=== PATIENT | male | born 1980 | race Caucasian/White ===

== ENCOUNTER 2017-05-06 20:53 | Emergency (ER) | payer BC ==
--- NOTE | 2017-05-06 22:24 | ERPHSYRPT ---
- History of Present Illness Time Seen by Provider: 05/06/17 22:18 Source: patient, police Exam Limitations: no limitations Patient Subjective Stated Complaint: pt has been fighting with his -states it's been going on for some time -she wants some space -he works out of town and tonight he had a "nervous break down " he had and gun demi and was going "ended it all" he tearful but cooperative -his nephew is at the bedside Triage Nursing Assessment: pt is awake and alert and answering questions tearful at times Physician History: The patient is a 36-year-old male brought in by [facility] complaining of wanting to kill himself with a handgun. He no longer wants to do such an act and realizes it was foolish. He states he that he had his have been fighting for 2-3 weeks. She came home 2 or 3 weeks ago and said she needed states. He assumed the worse that she had been having an affair and they began having an argument. He admits to drinking frequently but has ceased drinking alcohol for the past week. Demi his came home and showed him divorce papers. He tried to sign them that she said there was still more work to be done on the papers and would let him sign in. He left the house briefly to feed his hogs. He came back in [facility] to each of his 3 children aged 5, 9, and 11 years, got his handgun, and drove away to one of his other properties. His followed him. She stopped him before he shot himself. [facility] now brings him in. He has a past medical history of diabetes and anxiety. He takes Xanax but has been out for day. He has been started on a new anxiolytics but he doesn 't know what it is. Timing/Duration: hour(s) (3) Severity of Symptoms-Max: severe Severity of Symptoms-Current: moderate Context related to: spouse Suicidal thoughts: specific plan Associated Symptoms: depressed Previous symptoms: no prior history Allergies/Adverse Reactions: NSAIDS (Non-Steroidal Anti-Inflamma Allergy (Intermediate, Verified 05/06/17 21: 58) Swelling of Eyelids Home Medications: Alprazolam 1 mg [Xanax 1 mg] 1 tab TID 05/06/17 [History] Metformin HCl 500 mg [Glucophage 500 MG] 1,000 mg BID 05/06/17 [History] Hx Tetanus, Diphtheria Vaccination/Date Given: No Hx Influenza Vaccination/Date Given: Yes (07/2013) Hx Pneumococcal Vaccination/Date Given: No - Past Medical History Pertinent Past Medical History: Yes Neurological History: No Pertinent History ENT History: No Pertinent History Cardiac History: No Pertinent History Respiratory History: No Pertinent History Endocrine Medical History: Diabetes Type II Musculoskeletal History: No Pertinent History GI Medical History: No Pertinent History History: No Pertinent History Psycho-Social History: Anxiety Male Reproductive Disorders: Testicular Cancer Other Medical History: testicular CA 2006 - Past Surgical History Past Surgical History: Yes Neuro Surgical History: No Pertinent History Cardiac: No Pertinent History Respiratory: No Pertinent History Gastrointestinal: No Pertinent History Genitourinary: No Pertinent History Musculoskeletal: No Pertinent History Male Surgical History: Testicular Surgery, Other - Social History Smoking Status: Unknown if ever smoked Exposure to second hand smoke: Yes Drug Use: none Patient Lives Alone: No - Review of Systems Constitutional: No Fever, No Chills Eyes: No Symptoms Ears, Nose, & Throat: No Symptoms Respiratory: No Cough, No Dyspnea Cardiac: No Chest Pain, No Edema, No Syncope Abdominal/Gastrointestinal: No Abdominal Pain, No Nausea, No Vomiting, No Diarrhea Genitourinary Symptoms: No Dysuria Musculoskeletal: No Back Pain, No Neck Pain Skin: No Symptoms Neurological: No Dizziness, No Focal Weakness, No Sensory Changes Psychological: Anxiety, Depression, Suicidal Ideations Endocrine: No Symptoms Hematologic/Lymphatic: No Symptoms Immunological/Allergic: No Symptoms All Other Systems: Reviewed and Negative - Nursing Vital Signs Nursing Vital Signs: Initial Vital Signs Temperature 98.5 F Temperature Source Oral Pulse Rate 80 Respiratory Rate 16 Blood Pressure [Right Arm] 139/85 Pain Intensity 0 - Physical Exam General Appearance: moderate distress Eyes, Ears, Nose, Throat Exam: normal ENT inspection, moist mucous membranes Neck Exam: normal inspection, non-tender, supple Respiratory Exam: normal breath sounds, lungs clear, No respiratory distress Cardiovascular Exam: regular rate/rhythm, No edema Gastrointestinal/Abdominal Exam: soft, No tenderness, No distention Extremities Exam: normal inspection, normal range of motion, No evidence of injury, No edema Current Suicidality: other (pt had suicide plan but now has no suicide intention ) Neurological Exam: alert, depressed affect (tearful) Appearance: appropriate appearance Behavior/Eye Contact/Speech: alert & cooperative, cooperative Thoughts/Hallucinations: normal thought pattern Skin Exam: normal color, warm, dry, No rash SpO2 Interpretation: normal SpO2: 98 Oxygen Delivery: Room Air Ordered Tests: Active Orders 24 hr Category Date Time Status Clean Catch Urine Specimen STAT Care 05/06/17 22:38 Active Psychiatric Evaluation STAT Care 05/06/17 22:24 Active ACETAMINOPHEN Stat Lab 05/06/17 22:40 Completed CBC W DIFF Stat Lab 05/06/17 22:40 Completed CMP Stat Lab 05/06/17 22:40 Completed ETHYL ALCOHOL Stat Lab 05/06/17 22:40 Completed SALICYLATE Stat Lab 05/06/17 22:40 Completed TSH [TSH, 3RD Generation] Stat Lab 05/06/17 22:40 Completed UA W/RFX UR CULTURE Stat Lab 05/06/17 22:40 Completed Urine Triage Profile Stat Lab 05/06/17 22:40 Completed Medication Summary Discontinued Medications Generic Name Dose Route Start Last Admin Trade Name Elodia PRN Reason Stop Dose Admin Alprazolam 0.5 mg 05/07/17 00:48 05/07/17 00:52 Xanax 0.5 Mg PO 05/07/17 00:49 0.5 mg STAT ONE Administration Alprazolam Confirm 05/07/17 00:51 Xanax 0.5 Mg Administered 05/07/17 00:52 Dose 0.5 mg .ROUTE .[facility]-MED ONE Lab/Rad Data: Laboratory Result Diagrams 05/06/17 22:40 05/06/17 22:40 Laboratory Results 05/06/17 05/06/17 05/06/17 Range/Units 22:40 22:40 22:40 WBC 6.2 (4.0-10.5) K/mm3 RBC 5.50 (4.1-5.6) M/mm3 Hgb 17.0 (12.5-18.0) gm/dl Hct 49.6 (42-50) % MCV 90.2 (78-100) fl MCH 30.9 (26-32) pg MCHC 34.3 (32-36) g/dl RDW 17.1 H (11.5-14.0) % Plt Count 149 L (150-450) K/mm3 MPV 11.2 H (6-9.5) fl Gran % 57.9 (36.0-66.0) % Lymphocytes % 28.9 (24.0-44.0) % Monocytes % 11.2 (0.0-12.0) % Eosinophils % 1.5 (0.00-5.0) % Basophils % 0.5 (0.0-0.4) % Basophils # 0.03 (0-0.4) Sodium 139 (136-145) mEq/L Potassium 3.7 (3.5-5.1) mEq/L Chloride 103 (98-107) mEq/L Carbon Dioxide 27.6 (21-32) mEq/L Anion Gap 12.5 (5-15) MEQ/L BUN 8 L (9-20) mg/dL Creatinine 1.19 (0.55-1.30) mg/dl Estimated GFR > 60 ML/MIN Glucose 161 H (70-110) MG/DL Calcium 9.8 (8.5-10.1) mg/dL Total Bilirubin 1.40 H (0.2-1.0) mg/dL AST 26 (15-37) U/L ALT 34 (12-78) U/L Alkaline Phosphatase 85 (46-116) U/L Serum Total Protein 7.4 (6.4-8.2) gm/dL Albumin 4.2 (3.4-5.0) g/dL TSH 3rd Generation 3.106 (0.358-3.740) mIU/L Ur Collection Type Urine Color (YELLOW) Urine Appearance (CLEAR) Urine pH (5-6) Ur Specific Ringling (1.005-1.025) Urine Protein (Negative) Urine Ketones (NEGATIVE) Urine Blood (0-5) Wil/ul Urine Nitrite (NEGATIVE) Urine Bilirubin (NEGATIVE) Urine Urobilinogen (0-1) mg/dL Ur Leukocyte Esterase (NEGATIVE) Urine Glucose (NEGATIVE) mg/dL Salicylates < 2.8 L (2.8-20.0) mg/dl Urine Opiates Level (NEGATIVE) Ur Methadone (NEGATIVE) Acetaminophen < 2.0 L (10-30) ug/ml Urine Barbiturates (NEGATIVE) Ur Phencyclidine (PCP) (NEGATIVE) Urine Amphetamine (NEGATIVE) U Benzodiazepine Level (NEGATIVE) Urine Cocaine (NEGATIVE) Urine Marijuana (THC) (NEGATIVE) Ethyl Alcohol < 0.010 (0.00-0.01) % Specimen Received 05/06/17 05/06/17 Range/Units 22:40 22:40 WBC (4.0-10.5) K/mm3 RBC (4.1-5.6) M/mm3 Hgb (12.5-18.0) gm/dl Hct (42-50) % MCV (78-100) fl MCH (26-32) pg MCHC (32-36) g/dl RDW (11.5-14.0) % Plt Count (150-450) K/mm3 MPV (6-9.5) fl Gran % (36.0-66.0) % Lymphocytes % (24.0-44.0) % Monocytes % (0.0-12.0) % Eosinophils % (0.00-5.0) % Basophils % (0.0-0.4) % Basophils # (0-0.4) Sodium (136-145) mEq/L Potassium (3.5-5.1) mEq/L Chloride (98-107) mEq/L Carbon Dioxide (21-32) mEq/L Anion Gap (5-15) MEQ/L BUN (9-20) mg/dL Creatinine (0.55-1.30) mg/dl Estimated GFR ML/MIN Glucose (70-110) MG/DL Calcium (8.5-10.1) mg/dL Total Bilirubin (0.2-1.0) mg/dL AST (15-37) U/L ALT (12-78) U/L Alkaline Phosphatase (46-116) U/L Serum Total Protein (6.4-8.2) gm/dL Albumin (3.4-5.0) g/dL TSH 3rd Generation (0.358-3.740) mIU/L Ur Collection Type CCMS Urine Color YELLOW (YELLOW) Urine Appearance CLEAR (CLEAR) Urine pH 5.0 (5-6) Ur Specific Ringling 1.030 (1.005-1.025) Urine Protein NEGATIVE (Negative) Urine Ketones NEGATIVE (NEGATIVE) Urine Blood NEGATIVE (0-5) Wil/ul Urine Nitrite NEGATIVE (NEGATIVE) Urine Bilirubin NEGATIVE (NEGATIVE) Urine Urobilinogen NORMAL (0-1) mg/dL Ur Leukocyte Esterase NEGATIVE (NEGATIVE) Urine Glucose NEGATIVE (NEGATIVE) mg/dL Salicylates (2.8-20.0) mg/dl Urine Opiates Level NEG. (NEGATIVE) Ur Methadone NEG. (NEGATIVE) Acetaminophen (10-30) ug/ml Urine Barbiturates NEG. (NEGATIVE) Ur Phencyclidine (PCP) NEG. (NEGATIVE) Urine Amphetamine NEG. (NEGATIVE) U Benzodiazepine Level POS. (NEGATIVE) Urine Cocaine NEG. (NEGATIVE) Urine Marijuana (THC) NEG. (NEGATIVE) Ethyl Alcohol (0.00-0.01) % Specimen Received 05-06-17 2255 - Progress Progress: improved Progress Note: 05/07/17 02:26 I spoke with Darcie Munoz at [facility] about the patient. She is discussed the patient with Suma Mccullough. He has a long discussion with the patient and they assessed that he is safe to go home as long as he stays with his father. The patient's guns and remain at home and the patient will stay with his father who has no guns in the home. The patient is to follow-up with [facility] tomorrow. Counseled pt/family regarding: lab results, diagnosis, need for follow-up - Departure Time of Disposition: 02:29 Departure Disposition: Home Clinical Impression: Depression, Suicide ideation Condition: Stable Critical Care Time: No Additional Instructions: You have depression with suicide ideation. After speaking with the professionals at the [facility], you have agreed to stay with your father at his house. He has no guns in his house. You are to follow-up later today with [facility] psychiatry.
[2017-05-06 22:50] LABS: BASOPHIL % 0.5 % (0.0-0.4); Eosinophil % 1.5 % (0.00-5.0); Granulocytes % 57.9 % (36.0-66.0); Lymphocytes % 28.9 % (24.0-44.0); Mean Cell Volume 90.2 fl (78-100); Mean Corpuscular Hemoglobin 30.9 pg (26-32); Mean Platelet Volume 11.2 fl (6-9.5); Monocytes % 11.2 % (0.0-12.0); Platelet Count 149 K/mm3 (150-450); Red Cell Distribution Width 17.1 % (11.5-14.0); White Blood Count 6.2 K/mm3 (4.0-10.5)
[2017-05-06 22:58] LABS: ADD URINE CULTURE? NO (NO); Bilirubin NEGATIVE (NEGATIVE); Blood NEGATIVE Ery/ul (0-5); COMPLETE URINE MICROSCOPIC? NO; Collection Type CCMS; Glucose NEGATIVE (NEGATIVE); Leukocyte Esterase NEGATIVE (NEGATIVE)
[2017-05-06 23:24] LABS: ACETAMINOPHEN < 2.0 ug/ml (10-30); ALBUMIN 4.2 g/dL (3.4-5.0); ALKALINE PHOSPHATASE 85 U/L (46-116); ANION GAP 12.5 MEQ/L (5-15); BLOOD UREA NITROGEN 8 mg/dL (9-20); CHLORIDE 103 mEq/L (98-107); Carbon Dioxide 27.6 mEq/L (21-32); ETHYL ALCOHOL < 0.010 % (0.00-0.01); Glucose 161 MG/DL (70-110); Potassium 3.7 mEq/L (3.5-5.1); SGOT/AST 26 U/L (15-37); SGPT/ALT 34 U/L (12-78); SODIUM 139 mEq/L (136-145); Total Protein 7.4 gm/dL (6.4-8.2)
[2017-05-06 23:59] VITALS: BP 139/85; PULSE 80
[2017-05-07] MEDS ORDERED: xanAX 0.5 MG PO ONE (00:48)
[2017-05-07] MEDS ORDERED: xanAX 0.5 MG ONE (00:51)
[2017-05-07 02:31] VITALS: O2SAT 98
== END 2017-05-07 02:42 | disposition home or self-care (01) ==
LOC: ED 20:53
DX: R45.851 Suicidal ideations (principal); F32.9 Major depressive disorder, single episode, unspecified
CPT/HCPCS: 36415; 80053; 80307; 81002; 84443; 85025; 90791; 99285; G0481; Q3014; A9270-GY

== ENCOUNTER 2019-04-22 00:26 | Emergency (ER) | payer BC ==
--- NOTE | 2019-04-22 00:47 | ERPHSYRPT ---
- History of Present Illness Time Seen by Provider: 04/22/19 00:47 Source: patient Exam Limitations: no limitations Physician History: 38 y/o iddm white male who has been out of his insulin for 3 days, presents with not feeling really well and a blood glucose level of 800 at home on his uncalibrated glucometer. no n/v/d. no pain anywhere. Timing/Duration: day(s) (3) Severity: mild Associated Symptoms: malaise, No nausea, No vomiting, No abdominal pain, No shortness of breath, No chest pain, No weakness Allergies/Adverse Reactions: NSAIDS (Non-Steroidal Anti-Inflamma Allergy (Intermediate, Verified 05/06/17 21: 58) Swelling of Eyelids Home Medications: Alprazolam 1 mg [Xanax 1 mg] 1 tab PO TID PRN 05/06/17 [History] Insulin Glargine,Hum.rec.anlog [Lantus] 32 unit SQ HS 04/22/19 [History] Hx Tetanus, Diphtheria Vaccination/Date Given: No Hx Influenza Vaccination/Date Given: Yes (07/2013) Hx Pneumococcal Vaccination/Date Given: No - Review of Systems Constitutional: Malaise Eyes: No Symptoms Ears, Nose, & Throat: No Symptoms Respiratory: No Symptoms Cardiac: No Symptoms Abdominal/Gastrointestinal: No Symptoms Genitourinary Symptoms: No Symptoms Musculoskeletal: No Symptoms Skin: No Symptoms Neurological: No Symptoms Psychological: No Symptoms Endocrine: No Symptoms Hematologic/Lymphatic: No Symptoms Immunological/Allergic: No Symptoms All Other Systems: Reviewed and Negative - Past Medical History Pertinent Past Medical History: Yes Neurological History: No Pertinent History ENT History: No Pertinent History Cardiac History: No Pertinent History Respiratory History: No Pertinent History Endocrine Medical History: No Pertinent History Musculoskeletal History: Arthritis, Fractures GI Medical History: No Pertinent History History: No Pertinent History Psycho-Social History: Anxiety Male Reproductive Disorders: Testicular Cancer Other Medical History: L clavical fx in 1998. - Past Surgical History Past Surgical History: Yes Neuro Surgical History: No Pertinent History Cardiac: No Pertinent History Respiratory: No Pertinent History Gastrointestinal: No Pertinent History Genitourinary: No Pertinent History Musculoskeletal: No Pertinent History Male Surgical History: Testicular Surgery, Other - Social History Smoking Status: Unknown if ever smoked Exposure to second hand smoke: Yes Drug Use: none Patient Lives Alone: No - Nursing Vital Signs Nursing Vital Signs: Initial Vital Signs Temperature 97.7 F 04/22/19 00:55 Pulse Rate 101 H 04/22/19 00:55 Respiratory Rate 18 04/22/19 00:55 Blood Pressure 123/83 04/22/19 00:55 O2 Sat by Pulse Oximetry 93 L 04/22/19 00:55 Pain Scale Pain Intensity 0 - Physical Exam General Appearance: no apparent distress, alert, anxiety Eye Exam: PERRL/EOMI, eyes nml inspection Ears, Nose, Throat Exam: normal ENT inspection, moist mucous membranes Neck Exam: normal inspection, non-tender, supple, full range of motion Respiratory Exam: normal breath sounds, lungs clear, airway intact, No chest tenderness, No respiratory distress Cardiovascular Exam: regular rate/rhythm, normal heart sounds, normal peripheral pulses Gastrointestinal/Abdomen Exam: soft, normal bowel sounds, No tenderness Back Exam: normal inspection, normal range of motion, No CVA tenderness, No vertebral tenderness Extremity Exam: normal inspection, normal range of motion, pelvis stable Neurologic Exam: alert, oriented x 3, cooperative, life educator II-XII nml as tested, normal mood/affect, nml cerebellar function, nml station & gait, sensation nml Skin Exam: normal color, warm, dry Lymphatic Exam: No adenopathy SpO2 Interpretation: normal O2 Delivery: Room Air Ordered Tests: Active Orders 24 hr Category Date Time Status IV Insertion STAT Care 04/22/19 00:48 Active BMP Stat Lab 04/22/19 00:55 Completed CBC W DIFF Stat Lab 04/22/19 00:55 Completed Manual Differential NC Stat Lab 04/22/19 00:55 Completed UA W/RFX UR CULTURE Stat Lab 04/22/19 02:41 Ordered Medication Summary Generic Name Dose Route Start Last Admin Trade Name Freq PRN Reason Stop Dose Admin Sodium Chloride 1,000 mls @ 999 mls/hr 04/22/19 01:56 Sodium Chloride 0.9% 1000 Ml IV 04/22/19 02:56 .Q1H1M STA Discontinued Medications Generic Name Dose Route Start Last Admin Trade Name Freq PRN Reason Stop Dose Admin Sodium Chloride 1,000 mls @ 999 mls/hr 04/22/19 00:48 04/22/19 01:06 Sodium Chloride 0.9% 1000 Ml IV 04/22/19 01:48 999 mls/hr .Q1H1M STA Administration Sodium Chloride Confirm 04/22/19 01:06 Sodium Chloride 0.9% 1000 Ml Administered 04/22/19 01:07 Dose 1,000 mls @ .ROUTE .[facility]-MED ONE Lab/Rad Data: Laboratory Result Diagrams 04/22/19 00:55 04/22/19 00:55 Laboratory Results 04/22/19 04/22/19 Range/Units 00:55 00:55 WBC 5.8 (4.0-10.5) K/mm3 RBC 4.86 (4.1-5.6) M/mm3 Hgb 15.2 (12.5-18.0) gm/dl Hct 42.8 (42-50) % MCV 88.1 (78-100) fl MCH 31.3 (26-32) pg MCHC 35.5 (32-36) g/dl RDW 13.6 (11.5-14.0) % Plt Count 184 (150-450) K/mm3 MPV 11.5 H (6-9.5) fl Sodium 134 L (137-145) mmol/L Potassium 3.9 (3.5-5.1) mmol/L Chloride 98 (98-107) mmol/L Carbon Dioxide 13 L* (22-30) mmol/L Anion Gap 27.3 H (5-15) MEQ/L BUN 15 (9-20) mg/dL Creatinine 0.99 (0.66-1.25) mg/dL Estimated GFR > 60.0 ML/MIN Glucose 336 H (74-106) mg/dL Calcium 9.6 (8.4-10.2) mg/dL - Progress Progress: re-examined Progress Note: 04/22/19 02:56 pt does not want to wait for further tx and wants to leave [facility]. risks of not completing work up d/w pt.he signed an [facility] form Counseled pt/family regarding: lab results, diagnosis, need for follow-up - Departure Departure Disposition: AMA Clinical Impression: Hyperglycemia Condition: Stable Critical Care Time: No Referrals: ROGELIO HAIDER [Primary Care Provider] - Additional Instructions: return to ED if symptoms worsen. follow up with your primary doctor for further management and refill of your medications
[2019-04-22] MEDS ORDERED: Sodium Chloride 0.9% 1000 ML 1,000 ML IV STA ×2 (00:48→01:56)
[2019-04-22 00:56] VITALS: BP 123/83
[2019-04-22] MEDS ORDERED: Sodium Chloride 0.9% 1000 ML 1,000 ML ONE (01:06)
[2019-04-22 01:09] LABS: Hematocrit 42.8 % (42-50); Hemoglobin 15.2 gm/dl (12.5-18.0); Mean Cell Volume 88.1 fl (78-100); Mean Corpuscular Hemoglobin 31.3 pg (26-32); Mean Corpuscular Hgb Concent. 35.5 g/dl (32-36); Mean Platelet Volume 11.5 fl (6-9.5); Platelet Count 184 K/mm3 (150-450); Red Blood Count 4.86 M/mm3 (4.1-5.6); Red Cell Distribution Width 13.6 % (11.5-14.0); White Blood Count 5.8 K/mm3 (4.0-10.5)
[2019-04-22 01:18] LABS: ANION GAP 27.3 MEQ/L (5-15); BLOOD UREA NITROGEN 15 mg/dL (9-20); CHLORIDE 98 mmol/L (98-107); Calcium 9.6 mg/dL (8.4-10.2); Creatinine 1 0.99 mg/dL (0.66-1.25); Glucose 336 mg/dL (74-106); Potassium 3.9 mmol/L (3.5-5.1); SODIUM 134 mmol/L (137-145)
[2019-04-22 01:23] VITALS: PULSE 95; O2SAT 98
[2019-04-22 01:31] LABS: Carbon Dioxide 13 mmol/L (22-30)
[2019-04-22 02:55] LABS: Appearance CLEAR (CLEAR); Bilirubin NEGATIVE (NEGATIVE); Blood NEGATIVE Ery/ul (0-5); Glucose >=500 mg/dL (NEGATIVE); Ketones TRACE (NEGATIVE); Leukocyte Esterase NEGATIVE (NEGATIVE); Nitrite NEGATIVE (NEGATIVE); Protein,Urine Dip NEGATIVE (Negative); Specific Gravity 1.008 (1.005-1.025); Urobilinogen NEGATIVE mg/dL (0-1)
[2019-04-22 04:26] LABS: Eosinophil 3 % (0.00-3.0); Lymphocytes 42 % (24-44); Monocyte 5 % (0.0-12.0); Neutrophils 50 % (36.-66.); Platelet Estimate NORMAL (NORMAL); Total Cells Counted 100
== END 2019-04-22 03:10 | disposition left against medical advice (07) ==
LOC: ED 00:26
DX: E10.65 Type 1 diabetes mellitus with hyperglycemia (principal)
CPT/HCPCS: 36000; 36415; 80048; 81001; 85025; 96360; 99284

== ENCOUNTER 2022-03-29 00:49 | Emergency (ER) | payer SELFPAY ==
[2022-03-29] MEDS ORDERED: BABY ASPIRIN 81 MG CHEW PO ONE (00:58)
[2022-03-29] MEDS ORDERED: Sodium Chloride 0.9% 1000 ML 1,000 ML IV STA (00:58)
[2022-03-29] MEDS ORDERED: Sodium Chloride 0.9% 1000 ML 1,000 ML ONE (01:13)
[2022-03-29] MEDS ORDERED: Nitrostat 0.4 MG Tablet SL PRN (01:17)
[2022-03-29 01:18] LABS: Absolute Neutrophil Ct (ANC) 3.65 x10^3/uL (1.4-6.9); Basophil (Absolute #) 0.09 x10^3/uL (0-0.4); Eosinophil % 2.4 % (0.00-5.0); Eosinophil (Absolute #) 0.15 x10^3/uL (0-0.5); Hematocrit 43.5 % (42-50); Hemoglobin 15.1 g/dL (12.5-18.0); Lymphocyte (Absolute #) 1.97 x10^3/uL (1.0-4.6); Lymphocytes % 31.2 % (24.0-44.0); Mean Cell Volume 83.5 fL (78-100); Mean Corpuscular Hgb Concent. 34.7 g/dL (32-36); Mean Platelet Volume 11.4 fL (7.5-11.0); Monocyte (Absolute #) 0.43 x10^3/uL (0.0-1.3); Monocytes % 6.8 % (0.0-12.0); Neutrophil % 57.7 % (36.0-66.0); Platelet Count 239 x10^3/uL (150-450); Red Blood Count 5.21 x10^6/uL (4.1-5.6); Red Cell Distribution Width 12.6 % (11.5-14.0); White Blood Count 6.3 x10^3/uL (4.0-10.5)
[2022-03-29 01:30] LABS: D-DIMER QUANTITATIVE 0.19 ng/mL (0.0-0.50); INR 0.93 (0.8-3.0); PROTIME 9.9 SECONDS (9.4-12.5)
[2022-03-29 01:38] LABS: ALBUMIN 3.9 g/dL (3.5-5.0); ALKALINE PHOSPHATASE 148 U/L (38-126); AMYLASE 69 U/L (30-110); ANION GAP 14.8 MEQ/L (5-15); BLOOD UREA NITROGEN 13 mg/dL (9-20); CHLORIDE 98 mmol/L (98-107); Calcium 9.6 mg/dL (8.4-10.2); Carbon Dioxide 23 mmol/L (22-30); Creatinine 1 1.01 mg/dL (0.66-1.25); EST GLOMERULAR FILTRATION RATE > 60.0 ML/MIN; ETHYL ALCOHOL < 10 mg/dL (0-10); Glucose 427 mg/dL (74-106); LIPASE 189 U/L (23-300); NT PRO BNP < 11.5 pg/mL (0-450); Potassium 3.6 mmol/L (3.5-5.1); SGOT/AST 20 U/L (17-59); SGPT/ALT 22 U/L (0-50); SODIUM 132 mmol/L (137-145); Total Protein 6.8 g/dL (6.3-8.2)
[2022-03-29] MEDS ORDERED: HUMULIN R IV ONE (01:49)
[2022-03-29] MEDS ORDERED: HUMULIN R ONE (01:57)
[2022-03-29] MEDS ORDERED: Lantus Insulin ONE (02:04)
--- NOTE | 2022-03-29 02:34 | ERPHSYRPT ---
- History of Present Illness Time Seen by Provider: 03/29/22 00:55 Historian: patient, police Exam Limitations: no limitations Patient Subjective Stated Complaint: Pt states a few moments prior to arrival he started having chest pain Triage Nursing Assessment: Pt ambulated back to ER in handcuffs and accompanied by law enforcement. Pt holding his left chest. Respirations normal. No diaphoresis. Physician History: Patient is a 41-year-old male who was arrested by [facility] police reportedly he had been dealing and drugs. While he was having his blood drawn in the lab he developed left-sided chest pain which she rated initially as 9 of 10 now says it is 2 of 10 there is no radiation he has had some nausea but no vomiting this pain started approximately 30 minutes prior to exam. He is an insulin-dependent diabetic and reports he takes 52 units of Lantus every night has not taken any for more than 24 hours. Timing/Duration: today Activities at Onset: other (Getting blood drawn by [place] [employer] police) Quality: pressure Location: substernal Chest Pain Radiation: no radiation Severity of Pain-Max: severe Severity of Pain-Current: mild Modifying Factors: Improves With: nothing Associated Symptoms: nausea Prior Chest Pain/Cardiac Workup: no prior cardiac workup Nitro Today/Relief: no nitro taken today Aspirin Treatment Today: no aspirin today Allergies/Adverse Reactions: NSAIDS (Non-Steroidal Anti-Inflamma Allergy (Intermediate, Verified 05/06/17 21:58) Swelling of Eyelids Home Medications: ALPRAZolam 1 MG [Xanax 1 mg] 1 tab PO TID PRN 05/06/17 [History] Insulin Glargine,Hum.rec.anlog [Lantus] 50 unit SQ HS 04/22/19 [History] Hx Tetanus, Diphtheria Vaccination/Date Given: No Hx Influenza Vaccination/Date Given: Yes (07/2013) Hx Pneumococcal Vaccination/Date Given: No Travel Risk - International Travel Have you traveled outside of the country in past 3 weeks: No - Coronavirus Screening Are you exhibiting any of the following symptoms?: No - Vaccine Status Have you recieved a Covid-19 vaccination: No - Review of Systems Constitutional: No Fever, No Chills Eyes: No Symptoms Ears, Nose, & Throat: No Symptoms Respiratory: No Cough, No Dyspnea Cardiac: Chest Pain, No Edema, No Syncope Abdominal/Gastrointestinal: Nausea, No Abdominal Pain, No Vomiting, No Diarrhea Genitourinary Symptoms: No Dysuria Musculoskeletal: No Back Pain, No Neck Pain Skin: No Rash Neurological: No Dizziness, No Focal Weakness, No Sensory Changes Psychological: No Symptoms Endocrine: No Symptoms All Other Systems: Reviewed and Negative - Past Medical History Pertinent Past Medical History: Yes Neurological History: No Pertinent History ENT History: No Pertinent History Cardiac History: No Pertinent History Respiratory History: No Pertinent History Endocrine Medical History: Diabetes Type II Musculoskeletal History: Arthritis, Fractures GI Medical History: No Pertinent History History: No Pertinent History Psycho-Social History: Anxiety Male Reproductive Disorders: Testicular Cancer Other Medical History: Hx of fractures but none involving LE. - Past Surgical History Past Surgical History: Yes Neuro Surgical History: No Pertinent History Cardiac: No Pertinent History Respiratory: No Pertinent History Gastrointestinal: No Pertinent History Genitourinary: No Pertinent History Musculoskeletal: No Pertinent History Male Surgical History: Testicular Surgery, Other - Social History Smoking Status: Never smoker Exposure to second hand smoke: Yes Drug Use: none Patient Lives Alone: No - Nursing Vital Signs Nursing Vital Signs: Initial Vital Signs Pulse Rate 112 H 03/29/22 00:50 Blood Pressure 156/99 03/29/22 00:50 O2 Sat by Pulse Oximetry 98 03/29/22 00:50 Pain Scale Pain Intensity 0 - Physical Exam General Appearance: mild distress, alert Eye Exam: PERRL/EOMI, eyes nml inspection Ears, Nose, Throat Exam: normal ENT inspection, moist mucous membranes Neck Exam: normal inspection, non-tender, supple, full range of motion Respiratory Exam: normal breath sounds, lungs clear, No respiratory distress Cardiovascular Exam: regular rate/rhythm, normal heart sounds Gastrointestinal/Abdomen Exam: soft, No tenderness, No mass Back Exam: normal inspection, No CVA tenderness, No vertebral tenderness Extremity Exam: normal inspection, normal range of motion Neurologic Exam: alert, oriented x 3, cooperative, normal mood/affect, sensation nml, No motor deficits Skin Exam: normal color, warm, dry SpO2 Interpretation: normal SpO2: 99 O2 Delivery: Room Air - Course Nursing assessment & vital signs reviewed: Yes EKG Interpreted by Me: RATE ([id number]), Sinus Tach, NORMAL AXIS, NORMAL INTERVALS, ST Elev (Consistent with early repolarization), Non-specific ST Changes, Other (Repeat EKG showed no changes) - Radiology Exams Chest X-ray Interpretation: Interpreted by me, Negative Ordered Tests: Active Orders 24 hr Category Date Time Status Clean Catch Urine Specimen STAT Care 03/29/22 00:58 Active EKG-ER Only STAT Care 03/29/22 00:58 Active IV Insertion STAT Care 03/29/22 00:58 Active CHEST 1 VIEW (PORTABLE) Stat Exams 03/29/22 00:58 Taken AMYLASE Stat Lab 03/29/22 01:00 Completed CBC W DIFF Stat Lab 03/29/22 01:00 Completed CMP Stat Lab 03/29/22 01:00 Completed D-DIMER QUANTITATIVE Stat Lab 03/29/22 01:00 Completed ETHYL ALCOHOL Stat Lab 03/29/22 01:00 Completed LIPASE Stat Lab 03/29/22 01:00 Completed Lactic Acid Stat Lab 03/29/22 00:58 Completed Lactic Acid Stat Lab 03/29/22 03:17 Received Lactic Acid Stat Lab 03/29/22 03:38 Completed MAGNESIUM Stat Lab 03/29/22 01:00 Completed NT PRO BNP Stat Lab 03/29/22 01:00 Completed POCT GLUCOSE Stat Lab 03/29/22 03:33 Completed PROTIME WITH INR Stat Lab 03/29/22 01:00 Completed TROPONIN Q3H Lab 03/29/22 01:00 Completed TROPONIN Q3H Lab 03/29/22 04:10 Completed TROPONIN Q3H Lab 03/29/22 07:00 Ordered TROPONIN Q3H Lab 03/29/22 10:00 Ordered TROPONIN Q3H Lab 03/29/22 13:00 Ordered UA W/RFX CULTURE Stat Lab 03/29/22 Ordered Urine Triage Profile Stat Lab 03/29/22 00:58 Ordered Medication Summary Generic Name Dose Route Start Last Admin Trade Name Freq PRN Reason Stop Dose Admin Insulin Glargine 20 unit 03/29/22 22:00 03/29/22 02:12 Insulin Glargine 1 Unit SQ 04/28/22 21:59 20 unit HS MILLICENT Administration Nitroglycerin 0.4 mg 03/29/22 01:17 03/29/22 01:23 Nitroglycerin 0.4 Mg Tablet Bottle SL 04/28/22 01:16 0.4 mg PRN PRN Administration CHEST PAIN Discontinued Medications Generic Name Dose Route Start Last Admin Trade Name Freq PRN Reason Stop Dose Admin Aspirin 324 mg 03/29/22 00:58 03/29/22 01:14 Aspirin 81 Mg Tab.Chew PO 03/29/22 00:59 Not Given STAT ONE Sodium Chloride 1,000 mls @ 999 mls/hr 03/29/22 00:58 03/29/22 01:14 Sodium Chloride 0.9% 1000 Ml IV 03/29/22 01:58 999 mls/hr .Q1H1M STA Administration Sodium Chloride Confirm 03/29/22 01:13 Sodium Chloride 0.9% 1000 Ml Administered 03/29/22 01:14 Dose 1,000 mls @ ud .ROUTE .STK-WinAd ONE Insulin Glargine Confirm 03/29/22 02:04 Insulin Glargine 1 Unit Administered 03/29/22 02:05 Dose 20 unit .ROUTE .STK-MED ONE Insulin Human Regular 10 unit 03/29/22 01:49 03/29/22 01:57 Insulin Regular, Human 1 Unit IV 03/29/22 01:50 10 unit STAT ONE Administration Insulin Human Regular Confirm 03/29/22 01:57 Insulin Regular, Human 1 Unit Administered 03/29/22 01:58 Dose 10 unit .ROUTE .STK-WinAd ONE Lab/Rad Data: Laboratory Result Diagrams 03/29/22 01:00 03/29/22 01:00 Laboratory Results 03/29/22 03/29/22 03/29/22 Range/Units 04:10 03:38 03:33 WBC (4.0-10.5) x10^3/uL RBC (4.1-5.6) x10^6/uL Hgb (12.5-18.0) g/dL Hct (42-50) % MCV (78-100) fL MCH (26-32) pg MCHC (32-36) g/dL RDW (11.5-14.0) % Plt Count (150-450) x10^3/uL MPV (7.5-11.0) fL Gran % (36.0-66.0) % Immature Gran % (Auto) (0.00-0.4) % Nucleat RBC Rel Count (0.00-0.1) % Eos # (Auto) (0-0.5) x10^3/uL Immature Gran # (Auto) (0.00-0.03) x10^3u/L Absolute Lymphs (auto) (1.0-4.6) x10^3/uL Absolute Monos (auto) (0.0-1.3) x10^3/uL Absolute Nucleated RBC (0.00-0.01) x10^3u/L Lymphocytes % (24.0-44.0) % Monocytes % (0.0-12.0) % Eosinophils % (0.00-5.0) % Basophils % (0.0-0.4) % Absolute Granulocytes (1.4-6.9) x10^3/uL Basophils # (0-0.4) x10^3/uL PT (9.4-12.5) SECONDS INR (0.8-3.0) D-Dimer (0.0-0.50) ng/mL Sodium (137-145) mmol/L Potassium (3.5-5.1) mmol/L Chloride (98-107) mmol/L Carbon Dioxide (22-30) mmol/L Anion Gap (5-15) MEQ/L BUN (9-20) mg/dL Creatinine (0.66-1.25) mg/dL Estimated GFR ML/MIN Glucose (74-106) mg/dL POC Glucometer 279 H (74 to 106) mg/dL Lactic Acid 1.7 (0.4-2.0) Calcium (8.4-10.2) mg/dL Magnesium (1.6-2.3) mg/dL Total Bilirubin (0.2-1.3) mg/dL AST (17-59) U/L ALT (0-50) U/L Alkaline Phosphatase (38-126) U/L Troponin I < 0.012 (0.000-0.034) ng/mL NT-Pro-B Natriuret Pep (0-450) pg/mL Serum Total Protein (6.3-8.2) g/dL Albumin (3.5-5.0) g/dL Amylase (30-110) U/L Lipase (23-300) U/L Ethyl Alcohol (0-10) mg/dL 03/29/22 03/29/22 03/29/22 Range/Units 01:00 01:00 01:00 WBC (4.0-10.5) x10^3/uL RBC (4.1-5.6) x10^6/uL Hgb (12.5-18.0) g/dL Hct (42-50) % MCV (78-100) fL MCH (26-32) pg MCHC (32-36) g/dL RDW (11.5-14.0) % Plt Count (150-450) x10^3/uL MPV (7.5-11.0) fL Gran % (36.0-66.0) % Immature Gran % (Auto) (0.00-0.4) % Nucleat RBC Rel Count (0.00-0.1) % Eos # (Auto) (0-0.5) x10^3/uL Immature Gran # (Auto) (0.00-0.03) x10^3u/L Absolute Lymphs (auto) (1.0-4.6) x10^3/uL Absolute Monos (auto) (0.0-1.3) x10^3/uL Absolute Nucleated RBC (0.00-0.01) x10^3u/L Lymphocytes % (24.0-44.0) % Monocytes % (0.0-12.0) % Eosinophils % (0.00-5.0) % Basophils % (0.0-0.4) % Absolute Granulocytes (1.4-6.9) x10^3/uL Basophils # (0-0.4) x10^3/uL PT 9.9 (9.4-12.5) SECONDS INR 0.93 (0.8-3.0) D-Dimer 0.19 (0.0-0.50) ng/mL Sodium 132 L (137-145) mmol/L Potassium 3.6 (3.5-5.1) mmol/L Chloride 98 (98-107) mmol/L Carbon Dioxide 23 (22-30) mmol/L Anion Gap 14.8 (5-15) MEQ/L BUN 13 (9-20) mg/dL Creatinine 1.01 (0.66-1.25) mg/dL Estimated GFR > 60.0 ML/MIN Glucose 427 H (74-106) mg/dL POC Glucometer (74 to 106) mg/dL Lactic Acid (0.4-2.0) Calcium 9.6 (8.4-10.2) mg/dL Magnesium 2.0 (1.6-2.3) mg/dL Total Bilirubin 0.70 (0.2-1.3) mg/dL AST 20 (17-59) U/L ALT 22 (0-50) U/L Alkaline Phosphatase 148 H (38-126) U/L Troponin I < 0.012 (0.000-0.034) ng/mL NT-Pro-B Natriuret Pep < 11.5 (0-450) pg/mL Serum Total Protein 6.8 (6.3-8.2) g/dL Albumin 3.9 (3.5-5.0) g/dL Amylase 69 (30-110) U/L Lipase 189 (23-300) U/L Ethyl Alcohol < 10 (0-10) mg/dL 03/29/22 03/29/22 Range/Units 01:00 00:58 WBC 6.3 (4.0-10.5) x10^3/uL RBC 5.21 (4.1-5.6) x10^6/uL Hgb 15.1 (12.5-18.0) g/dL Hct 43.5 (42-50) % MCV 83.5 (78-100) fL MCH 29.0 (26-32) pg MCHC 34.7 (32-36) g/dL RDW 12.6 (11.5-14.0) % Plt Count 239 (150-450) x10^3/uL MPV 11.4 H (7.5-11.0) fL Gran % 57.7 (36.0-66.0) % Immature Gran % (Auto) 0.5 H (0.00-0.4) % Nucleat RBC Rel Count 0.0 (0.00-0.1) % Eos # (Auto) 0.15 (0-0.5) x10^3/uL Immature Gran # (Auto) 0.03 (0.00-0.03) x10^3u/L Absolute Lymphs (auto) 1.97 (1.0-4.6) x10^3/uL Absolute Monos (auto) 0.43 (0.0-1.3) x10^3/uL Absolute Nucleated RBC 0.00 (0.00-0.01) x10^3u/L Lymphocytes % 31.2 (24.0-44.0) % Monocytes % 6.8 (0.0-12.0) % Eosinophils % 2.4 (0.00-5.0) % Basophils % 1.4 (0.0-0.4) % Absolute Granulocytes 3.65 (1.4-6.9) x10^3/uL Basophils # 0.09 (0-0.4) x10^3/uL PT (9.4-12.5) SECONDS INR (0.8-3.0) D-Dimer (0.0-0.50) ng/mL Sodium (137-145) mmol/L Potassium (3.5-5.1) mmol/L Chloride (98-107) mmol/L Carbon Dioxide (22-30) mmol/L Anion Gap (5-15) MEQ/L BUN (9-20) mg/dL Creatinine (0.66-1.25) mg/dL Estimated GFR ML/MIN Glucose (74-106) mg/dL POC Glucometer (74 to 106) mg/dL Lactic Acid 2.8 H (0.4-2.0) Calcium (8.4-10.2) mg/dL Magnesium (1.6-2.3) mg/dL Total Bilirubin (0.2-1.3) mg/dL AST (17-59) U/L ALT (0-50) U/L Alkaline Phosphatase (38-126) U/L Troponin I (0.000-0.034) ng/mL NT-Pro-B Natriuret Pep (0-450) pg/mL Serum Total Protein (6.3-8.2) g/dL Albumin (3.5-5.0) g/dL Amylase (30-110) U/L Lipase (23-300) U/L Ethyl Alcohol (0-10) mg/dL - Progress Progress: improved Air Movement: good Progress Note: 03/29/22 04:50 Patient was kept in the ER because of his complaints of chest pain and a 3-hour troponin was done which was negative, he was released to the [place] [employer]. 03/29/22 04:51 He did have marked improvement in his hyperglycemia at the time of discharge it had gone from greater than 400 to 270. Blood Culture(s) Obtained: No Antibiotics given: No - Departure Departure Disposition: Senior Living/Retirement Clinical Impression: Chest pain, Hyperglycemia due to type 1 diabetes mellitus Condition: Stable Critical Care Time: No Referrals: NEO GARDNER NP [Primary Care Provider] - Follow up/PCP as directed Instructions: Chest Pain (DC)
[2022-03-29 04:55] LABS: Appearance CLEAR (CLEAR); Bilirubin NEGATIVE (NEGATIVE); Glucose 500 mg/dL (NEGATIVE); Ketones NEGATIVE (NEGATIVE)
[2022-03-29 04:56] LABS: Dipstick done @ ? MAIN LAB; Nitrite NEGATIVE (NEGATIVE); Ph 5.5 (5-6); Protein,Urine Dip NEGATIVE (Negative); RBC NEGATIVE Ery/ul (0-5); Urobilinogen 0.2 mg/dL (0-1)
[2022-03-29 04:57] LABS: Urine Cultured Indicated? YES
[2022-03-29 05:08] LABS: Barbiturate,Urine NEGATIVE (NEGATIVE); Benzodiazepine,Urine NEGATIVE (NEGATIVE); Cocaine,Urine NEGATIVE (NEGATIVE); Methadone,Urine NEGATIVE (NEGATIVE); Opiate,Urine NEGATIVE (NEGATIVE); PCP,Urine NEGATIVE (NEGATIVE); THC,Urine NEGATIVE (NEGATIVE)
[2022-03-29 05:18] VITALS: BP 144/92; PULSE 101; O2SAT 99
[2022-03-29 05:35] LABS: Amphetamine,Urine POSITIVE (NEGATIVE)
--- NOTE | 2022-03-29 07:58 | XRAY ---
Indication: Chest pain. No known injury. Possible ETOH. Comparison: June 02, 2013. Portable apical lordotic chest is now underinflated crowding both lung bases. Remaining heart and upper lungs unremarkable. Bony thorax intact with old left clavicle fracture. Impression: Nonacute underinflated chest.
[2022-03-29] MEDS ORDERED: Lantus Insulin SQ SCH (22:00)
== END 2022-03-29 05:18 ==
LOC: ED 00:49
DX: R07.9 Chest pain, unspecified (principal); E10.65 Type 1 diabetes mellitus with hyperglycemia; R11.0 Nausea; Z79.4 Long term (current) use of insulin
CPT/HCPCS: 36000; 36415; 71045; 80053; 80307; 81015; 82150; 82947; 83605; 83690; 83735; 83880; 84484; 85025; 85379; 85610; 87086; 93005; 96372; 99284; J1815; A9270-GY; G0480

== ENCOUNTER 2022-10-31 14:36 | Emergency (ER) | payer SELFPAY ==
--- NOTE | 2022-10-31 14:43 | ERPHSYRPT ---
- History of Present Illness Time Seen by Provider: 10/31/22 14:42 Source: patient Exam Limitations: no limitations Physician History: This a 42-year-old white male patient has a history of diabetes, arthritis and anxiety issues. He presents to the emergency room with some substernal central nonradiating chest pressure. He has no history of coronary artery disease. Patient states that he has not had any illicit drug use. He has not drank any alcohol. He is on his way to stay [facility] because of her recent DUI. He became anxious and was having some chest pain as described above. They wanted to be evaluated. Patient is not suicidal or homicidal. Timing/Duration: today Severity of Symptoms-Max: mild (To moderate) Severity of Symptoms-Current: mild Context related to: legal problems Associated Symptoms: anxiety Previous symptoms: no prior history Allergies/Adverse Reactions: NSAIDS (Non-Steroidal Anti-Inflamma Allergy (Intermediate, Verified 05/06/17 21:58) Swelling of Eyelids aspirin Allergy (Verified 10/31/22 14:54) shellfish derived Allergy (Verified 10/31/22 14:54) Home Medications: Insulin Glargine,Hum.rec.anlog [Lantus] 52 unit SQ HS 04/22/19 [History] Hx Tetanus, Diphtheria Vaccination/Date Given: No Hx Influenza Vaccination/Date Given: Yes (07/2013) Hx Pneumococcal Vaccination/Date Given: No Travel Risk - International Travel Have you traveled outside of the country in past 3 weeks: No - Coronavirus Screening Are you exhibiting any of the following symptoms?: No Close contact with a COVID-19 positive Pt in past 14-21 Days: No - Vaccine Status Have you recieved a Covid-19 vaccination: No - Past Medical History Pertinent Past Medical History: Yes Neurological History: No Pertinent History ENT History: No Pertinent History Cardiac History: No Pertinent History Respiratory History: No Pertinent History Endocrine Medical History: Diabetes Type II Musculoskeletal History: Arthritis, Fractures GI Medical History: No Pertinent History History: No Pertinent History Psycho-Social History: Anxiety Male Reproductive Disorders: Testicular Cancer Other Medical History: Hx of fractures but none involving LE. - Past Surgical History Past Surgical History: Yes Neuro Surgical History: No Pertinent History Cardiac: No Pertinent History Respiratory: No Pertinent History Gastrointestinal: No Pertinent History Genitourinary: No Pertinent History Musculoskeletal: No Pertinent History Male Surgical History: Testicular Surgery, Other - Social History Smoking Status: Never smoker Exposure to second hand smoke: Yes Drug Use: none Patient Lives Alone: No - Review of Systems Constitutional: No Symptoms Eyes: No Symptoms Ears, Nose, & Throat: No Symptoms Respiratory: No Symptoms Cardiac: Chest Pain Abdominal/Gastrointestinal: No Symptoms Genitourinary Symptoms: No Symptoms Musculoskeletal: No Symptoms Skin: No Symptoms Neurological: No Symptoms Psychological: No Symptoms Endocrine: No Symptoms Hematologic/Lymphatic: No Symptoms Immunological/Allergic: No Symptoms All Other Systems: Reviewed and Negative - Nursing Vital Signs Nursing Vital Signs: Initial Vital Signs Pulse Rate 96 H 10/31/22 14:39 Blood Pressure 125/83 10/31/22 14:39 O2 Sat by Pulse Oximetry 99 10/31/22 14:39 Pain Scale Pain Intensity 0 - Physical Exam General Appearance: no apparent distress, alert, anxiety Eyes, Ears, Nose, Throat Exam: normal ENT inspection, moist mucous membranes Neck Exam: normal inspection, non-tender, supple, full range of motion Respiratory Exam: normal breath sounds, chest tenderness, lungs clear, No respiratory distress, No airway intact Cardiovascular Exam: regular rate/rhythm, normal heart sounds, normal peripheral pulses Gastrointestinal/Abdominal Exam: soft, normal bowel sounds, No tenderness Extremities Exam: normal inspection, normal range of motion, No evidence of injury Current Suicidality: denies suicide plan Neurological Exam: alert, normal mood/affect, 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, oriented x 3, anxious Appearance: appropriate appearance, appropriate insight Behavior/Eye Contact/Speech: alert & cooperative, good eye contact Thoughts/Hallucinations: normal thought pattern, no apparent hallucination Skin Exam: normal color, warm, dry SpO2 Interpretation: normal O2 Delivery: Room Air - Course Nursing assessment & vital signs reviewed: Yes EKG Interpreted by Me: RATE ([id number]), Sinus Tach, NORMAL AXIS, NORMAL INTERVALS, NORMAL QRS, NORMAL ST-T, Other (No acute ischemia on today's twelve-lead EKG) Ordered Tests: Active Orders 24 hr Category Date Time Status EKG-ER Only STAT Care 10/31/22 15:11 Active IV Insertion STAT Care 10/31/22 15:11 Active Pulse Oximetry (ED) STAT Care 10/31/22 15:11 Active CBC W DIFF Stat Lab 10/31/22 16:00 Completed CMP Stat Lab 10/31/22 16:00 Completed TROPONIN Q4H Lab 10/31/22 16:00 Completed TROPONIN Q4H Lab 10/31/22 19:15 Ordered TROPONIN Q4H Lab 10/31/22 23:15 Ordered UA W/RFX UR CULTURE Stat Lab 10/31/22 16:42 Completed Urine Triage Profile Stat Lab 10/31/22 16:42 Completed Medication Summary Generic Name Dose Route Start Last Admin Trade Name Freq PRN Reason Stop Dose Admin Sodium Chloride 1,000 mls @ 999 mls/hr 10/31/22 18:22 10/31/22 18:24 Sodium Chloride 0.9% 1000 Ml IV 10/31/22 19:22 Not Given .Q1H1M STA Discontinued Medications Generic Name Dose Route Start Last Admin Trade Name Freq PRN Reason Stop Dose Admin Sodium Chloride 1,000 mls @ 999 mls/hr 10/31/22 17:14 10/31/22 18:16 Sodium Chloride 0.9% 1000 Ml IV 10/31/22 18:14 999 mls/hr .Q1H1M STA Administration Sodium Chloride Confirm 10/31/22 18:13 Sodium Chloride 0.9% 1000 Ml Administered 10/31/22 18:14 Dose 1,000 mls @ ud .ROUTE .STK-MED ONE Insulin Human Regular 15 unit 10/31/22 16:36 10/31/22 16:56 Insulin Regular, Human 1 Unit IV 10/31/22 16:37 15 unit STAT ONE Administration Insulin Human Regular Confirm 10/31/22 16:55 Insulin Regular, Human 1 Unit Administered 10/31/22 16:56 Dose 15 unit .ROUTE .STK-MED ONE Lorazepam 1 mg 10/31/22 15:12 10/31/22 16:11 Lorazepam 2 Mg/1 Ml 2 Mg Vial IV 10/31/22 15:13 1 mg STAT ONE Administration Lorazepam Confirm 10/31/22 16:10 Lorazepam 2 Mg/1 Ml 2 Mg Vial Administered 10/31/22 16:11 Dose 2 mg .ROUTE .STK-MED ONE Lab/Rad Data: Laboratory Result Diagrams 10/31/22 16:00 10/31/22 16:00 Laboratory Results 10/31/22 10/31/22 10/31/22 Range/Units 16:42 16:42 16:00 WBC (4.0-10.5) x10^3/uL RBC (4.1-5.6) x10^6/uL Hgb (12.5-18.0) g/dL Hct (42-50) % MCV (78-100) fL MCH (26-32) pg MCHC (32-36) g/dL RDW (11.5-14.0) % Plt Count (150-450) x10^3/uL MPV (7.5-11.0) fL Gran % (36.0-66.0) % Immature Gran % (Auto) (0.00-0.4) % Nucleat RBC Rel Count (0.00-0.1) % Eos # (Auto) (0-0.5) x10^3/uL Immature Gran # (Auto) (0.00-0.03) x10^3u/L Absolute Lymphs (auto) (1.0-4.6) x10^3/uL Absolute Monos (auto) (0.0-1.3) x10^3/uL Absolute Nucleated RBC (0.00-0.01) x10^3u/L Lymphocytes % (24.0-44.0) % Monocytes % (0.0-12.0) % Eosinophils % (0.00-5.0) % Basophils % (0.0-0.4) % Absolute Granulocytes (1.4-6.9) x10^3/uL Basophils # (0-0.4) x10^3/uL Sodium (137-145) mmol/L Potassium (3.5-5.1) mmol/L Chloride (98-107) mmol/L Carbon Dioxide (22-30) mmol/L Anion Gap (5-15) MEQ/L BUN (9-20) mg/dL Creatinine (0.66-1.25) mg/dL Estimated GFR ML/MIN Glucose (74-106) mg/dL Calcium (8.4-10.2) mg/dL Total Bilirubin (0.2-1.3) mg/dL AST (17-59) U/L ALT (0-50) U/L Alkaline Phosphatase (38-126) U/L Troponin I < 0.012 (0.000-0.034) ng/mL Serum Total Protein (6.3-8.2) g/dL Albumin (3.5-5.0) g/dL Urine Color Yellow (Yellow) Urine Appearance Clear (Clear) Urine pH 6.5 (4.6-8.0) Ur Specific Mcdonald >=1.030 A (1.005-1.030) Urine Protein Negative (Negative) Urine Ketones Negative (Negative) Urine Blood Negative (Negative) Urine Nitrite Negative (Negative) Urine Bilirubin Negative (Negative) Urine Urobilinogen 0.2 (0.2) mg/dL Ur Leukocyte Esterase Negative (Negative) Urine Microscopic RBC NONE (0-5) /HPF Urine Microscopic WBC NONE (0-5) /HPF Ur Epithelial Cells None Seen (None Seen) /HPF Urine Bacteria None Seen (None Seen) /HPF Urine Culture Reflexed NO (NO) Urine Glucose >=1000 A (Negative) mg/dL Urine Opiates Level NEGATIVE (NEGATIVE) Ur Methadone NEGATIVE (NEGATIVE) Urine Barbiturates NEGATIVE (NEGATIVE) Ur Phencyclidine (PCP) NEGATIVE (NEGATIVE) Urine Amphetamine POSITIVE (NEGATIVE) U Benzodiazepine Level NEGATIVE (NEGATIVE) Urine Cocaine NEGATIVE (NEGATIVE) Urine Marijuana (THC) NEGATIVE (NEGATIVE) 10/31/22 10/31/22 Range/Units 16:00 16:00 WBC 8.1 (4.0-10.5) x10^3/uL RBC 5.33 (4.1-5.6) x10^6/uL Hgb 15.3 (12.5-18.0) g/dL Hct 45.1 (42-50) % MCV 84.6 (78-100) fL MCH 28.7 (26-32) pg MCHC 33.9 (32-36) g/dL RDW 13.2 (11.5-14.0) % Plt Count 251 (150-450) x10^3/uL MPV 11.7 H (7.5-11.0) fL Gran % 73.0 H (36.0-66.0) % Immature Gran % (Auto) 0.9 H (0.00-0.4) % Nucleat RBC Rel Count 0.0 (0.00-0.1) % Eos # (Auto) 0.13 (0-0.5) x10^3/uL Immature Gran # (Auto) 0.07 H (0.00-0.03) x10^3u/L Absolute Lymphs (auto) 1.29 (1.0-4.6) x10^3/uL Absolute Monos (auto) 0.64 (0.0-1.3) x10^3/uL Absolute Nucleated RBC 0.00 (0.00-0.01) x10^3u/L Lymphocytes % 16.0 L (24.0-44.0) % Monocytes % 8.0 (0.0-12.0) % Eosinophils % 1.6 (0.00-5.0) % Basophils % 0.5 (0.0-0.4) % Absolute Granulocytes 5.88 (1.4-6.9) x10^3/uL Basophils # 0.04 (0-0.4) x10^3/uL Sodium 130 L (137-145) mmol/L Potassium 4.1 (3.5-5.1) mmol/L Chloride 99 (98-107) mmol/L Carbon Dioxide 23 (22-30) mmol/L Anion Gap 11.7 (5-15) MEQ/L BUN 11 (9-20) mg/dL Creatinine 0.71 (0.66-1.25) mg/dL Estimated GFR > 60.0 ML/MIN Glucose 575 H* (74-106) mg/dL Calcium 9.1 (8.4-10.2) mg/dL Total Bilirubin 0.60 (0.2-1.3) mg/dL AST 25 (17-59) U/L ALT 33 (0-50) U/L Alkaline Phosphatase 272 H (38-126) U/L Troponin I (0.000-0.034) ng/mL Serum Total Protein 7.0 (6.3-8.2) g/dL Albumin 4.0 (3.5-5.0) g/dL Urine Color (Yellow) Urine Appearance (Clear) Urine pH (4.6-8.0) Ur Specific Mcdonald (1.005-1.030) Urine Protein (Negative) Urine Ketones (Negative) Urine Blood (Negative) Urine Nitrite (Negative) Urine Bilirubin (Negative) Urine Urobilinogen (0.2) mg/dL Ur Leukocyte Esterase (Negative) Urine Microscopic RBC (0-5) /HPF Urine Microscopic WBC (0-5) /HPF Ur Epithelial Cells (None Seen) /HPF Urine Bacteria (None Seen) /HPF Urine Culture Reflexed (NO) Urine Glucose (Negative) mg/dL Urine Opiates Level (NEGATIVE) Ur Methadone (NEGATIVE) Urine Barbiturates (NEGATIVE) Ur Phencyclidine (PCP) (NEGATIVE) Urine Amphetamine (NEGATIVE) U Benzodiazepine Level (NEGATIVE) Urine Cocaine (NEGATIVE) Urine Marijuana (THC) (NEGATIVE) - Progress Progress Note: 10/31/22 18:24 Medical decision making: This patient states that he has not been taking his insulin. The last time he took his insulin was 30 days ago. He states that it causes visual changes. He has been noncompliant with his insulin. On his labs today he does have hyperglycemia but there are no ketones in his urine. His anion gap is normal as is his CO2. Patient will be given intravenous fluids and we will recheck his blood glucose level. If he is in the 300 range at the rech darius after his regular insulin IV dose, we will discharge him to home. Counseled pt/family regarding: lab results, diagnosis, need for follow-up - Departure Departure Disposition: Home Clinical Impression: Hyperglycemia, Anxiety, Noncompliance with medication regimen Condition: Stable Critical Care Time: No Referrals: NEO GARDNER NP [Primary Care Provider] - Follow up/PCP as directed Additional Instructions: Follow your diabetic diet that was provided to you in the past. Avoid sugars. Check your blood sugar before meals and at bedtime. Call your primary care provider for further evaluation and management including changing your diabetic regimen if appropriate.
[2022-10-31] MEDS ORDERED: Ativan 2 MG/1 ML VIAL IV ONE (15:12)
[2022-10-31 16:06] LABS: Absolute Neutrophil Ct (ANC) 5.88 x10^3/uL (1.4-6.9); Basophil (Absolute #) 0.04 x10^3/uL (0-0.4); Eosinophil % 1.6 % (0.00-5.0); Eosinophil (Absolute #) 0.13 x10^3/uL (0-0.5); Hematocrit 45.1 % (42-50); Hemoglobin 15.3 g/dL (12.5-18.0); Lymphocyte (Absolute #) 1.29 x10^3/uL (1.0-4.6); Mean Cell Volume 84.6 fL (78-100); Mean Corpuscular Hemoglobin 28.7 pg (26-32); Mean Corpuscular Hgb Concent. 33.9 g/dL (32-36); Mean Platelet Volume 11.7 fL (7.5-11.0); Monocyte (Absolute #) 0.64 x10^3/uL (0.0-1.3); Platelet Count 251 x10^3/uL (150-450); Red Blood Count 5.33 x10^6/uL (4.1-5.6); Red Cell Distribution Width 13.2 % (11.5-14.0); White Blood Count 8.1 x10^3/uL (4.0-10.5)
[2022-10-31] MEDS ORDERED: Ativan 2 MG/1 ML VIAL ONE (16:10)
[2022-10-31 16:20] LABS: ALKALINE PHOSPHATASE 272 U/L (38-126); ANION GAP 11.7 MEQ/L (5-15); BLOOD UREA NITROGEN 11 mg/dL (9-20); CHLORIDE 99 mmol/L (98-107); Calcium 9.1 mg/dL (8.4-10.2); Carbon Dioxide 23 mmol/L (22-30); Creatinine 1 0.71 mg/dL (0.66-1.25); EST GLOMERULAR FILTRATION RATE > 60.0 ML/MIN; Potassium 4.1 mmol/L (3.5-5.1); SGOT/AST 25 U/L (17-59); SGPT/ALT 33 U/L (0-50); SODIUM 130 mmol/L (137-145)
[2022-10-31 16:34] LABS: Glucose 575 mg/dL (74-106)
[2022-10-31] MEDS ORDERED: HUMULIN R IV ONE (16:36)
[2022-10-31] MEDS ORDERED: HUMULIN R ONE (16:55)
[2022-10-31] MEDS ORDERED: Sodium Chloride 0.9% 1000 ML 1,000 ML IV STA ×2 (17:14→18:22)
[2022-10-31 17:16] LABS: Appearance Clear (Clear); Bilirubin Negative (Negative); Blood Negative (Negative); Glucose >=1000 mg/dL (Negative); Ketones Negative (Negative); Leukocyte Esterase Negative (Negative); Nitrite Negative (Negative); Ph 6.5 (4.6-8.0); Protein,Urine Dip Negative (Negative); Specific Gravity >=1.030 (1.005-1.030); Urobilinogen 0.2 mg/dL (0.2)
[2022-10-31 17:33] LABS: Amphetamine,Urine POSITIVE (NEGATIVE); Barbiturate,Urine NEGATIVE (NEGATIVE); Benzodiazepine,Urine NEGATIVE (NEGATIVE); Cocaine,Urine NEGATIVE (NEGATIVE); Methadone,Urine NEGATIVE (NEGATIVE); Opiate,Urine NEGATIVE (NEGATIVE); PCP,Urine NEGATIVE (NEGATIVE); THC,Urine NEGATIVE (NEGATIVE)
[2022-10-31 18:01] LABS: Epithelial Cells None Seen /HPF (None Seen)
[2022-10-31 18:02] LABS: ADD URINE CULTURE? NO (NO); Bacteria None Seen /HPF (None Seen)
[2022-10-31] MEDS ORDERED: Sodium Chloride 0.9% 1000 ML 1,000 ML ONE (18:13)
[2022-10-31 19:21] VITALS: BP 130/94; PULSE 94; O2SAT 98
== END 2022-10-31 19:24 | disposition home or self-care (01) ==
LOC: ED 14:36
DX: E11.65 Type 2 diabetes mellitus with hyperglycemia (principal); Z91.14 Patient's other noncompliance with medication regimen; F41.9 Anxiety disorder, unspecified; R07.9 Chest pain, unspecified; Z79.4 Long term (current) use of insulin; Z28.310 Unvaccinated for COVID-19
CPT/HCPCS: 36000; 36415; 80053; 80307; 81001; 82947; 84484; 85025; 93005; 94760; 96374; 96375; 99284; J1815; J2060

== ENCOUNTER 2022-11-01 17:45 | Emergency (ER) | payer SELFPAY ==
[2022-11-01] MEDS ORDERED: Sodium Chloride 0.9% 1000 ML 1,000 ML IV STA (18:14)
[2022-11-01] MEDS ORDERED: Ativan 1 MG PO ONE (18:15)
[2022-11-01] MEDS ORDERED: Ativan 1 MG ONE (18:18)
[2022-11-01] MEDS ORDERED: Sodium Chloride 0.9% 1000 ML 1,000 ML ONE (18:18)
[2022-11-01 18:19] LABS: Absolute Neutrophil Ct (ANC) 6.08 x10^3/uL (1.4-6.9); Basophil (Absolute #) 0.07 x10^3/uL (0-0.4); Eosinophil % 1.1 % (0.00-5.0); Eosinophil (Absolute #) 0.09 x10^3/uL (0-0.5); Hematocrit 47.5 % (42-50); Hemoglobin 15.8 g/dL (12.5-18.0); Lymphocyte (Absolute #) 1.55 x10^3/uL (1.0-4.6); Lymphocytes % 18.5 % (24.0-44.0); Mean Cell Volume 86.5 fL (78-100); Mean Corpuscular Hemoglobin 28.8 pg (26-32); Mean Corpuscular Hgb Concent. 33.3 g/dL (32-36); Mean Platelet Volume 11.5 fL (7.5-11.0); Monocyte (Absolute #) 0.55 x10^3/uL (0.0-1.3); Monocytes % 6.6 % (0.0-12.0); Neutrophil % 72.5 % (36.0-66.0); Platelet Count 261 x10^3/uL (150-450); Red Blood Count 5.49 x10^6/uL (4.1-5.6); Red Cell Distribution Width 13.3 % (11.5-14.0); White Blood Count 8.4 x10^3/uL (4.0-10.5)
[2022-11-01 18:37] LABS: ALBUMIN 3.9 g/dL (3.5-5.0); ALKALINE PHOSPHATASE 158 U/L (38-126); BLOOD UREA NITROGEN 13 mg/dL (9-20); CHLORIDE 103 mmol/L (98-107); CK-Creatinine Phosphokinase 58 U/L (55-170); Calcium 9.4 mg/dL (8.4-10.2); Carbon Dioxide 23 mmol/L (22-30); Creatinine 1 0.89 mg/dL (0.66-1.25); EST GLOMERULAR FILTRATION RATE > 60.0 ML/MIN; Glucose 478 mg/dL (74-106); NT PRO BNP < 11.5 pg/mL (0-450); SGOT/AST 22 U/L (17-59); SGPT/ALT 32 U/L (0-50); SODIUM 133 mmol/L (137-145); Total Protein 6.6 g/dL (6.3-8.2)
[2022-11-01] MEDS ORDERED: HUMULIN R IV ONE ×2 (18:57→19:52)
[2022-11-01 19:17] VITALS: O2SAT 98
[2022-11-01] MEDS ORDERED: HUMULIN R ONE (20:15)
--- NOTE | 2022-11-01 20:31 | XRAY ---
Indication: Chest pain. Comparison: March 29, 2022 Portable apical lordotic chest remains clear. Heart not enlarged. Bony thorax intact again with old left clavicle fracture. No new/acute findings.
[2022-11-01 20:47] VITALS: BP 123/85; PULSE 112
--- NOTE | 2022-11-01 21:49 | ERPHSYRPT ---
- History of Present Illness Time Seen by Provider: 11/01/22 17:49 Source: patient, EMS, police Exam Limitations: no limitations Patient Subjective Stated Complaint: PT HERE FOR [facility] SEIZURE TODAY [facility], PT HAS TREMORS WITNESSED BY STAFF, PT CO CHEST PAIN 5 MINS BEFORE TREMORS STARTED. PT WAS SEEN YESTERDAY IN ER AND IS ANXIOUS ABOUT BEING IN BED, Triage Nursing Assessment: PT TALKES AT TIMES, HAS TREMORS TO BODY, RESP EASY, SKIN W/D/P, NO EDEMA NOTED, ABD SOFT, SEIZURE PADS APPLIED TO BED Physician History: 42 years old male with history of diabetes mellitus, anxiety, depression who was recently incarcerated for DUI, is brought in the ER for possible seizure. Patient is apparently having shaking all over off and on for almost half an hour with full regain of consciousness and answering questions even while having shaking. Patient is very anxious and complaining of some chest pain as well but started almost an hour ago. Dull aching substernal without any significant aggravating or relieving factors. No difficulty breathing. Patient has no history of seizures before. Has history of diabetes mellitus and has not taken his insulin today. I have talked to the patient, counseled on and is shaking improved. Allergies/Adverse Reactions: NSAIDS (Non-Steroidal Anti-Inflamma Allergy (Intermediate, Verified 11/01/22 17:47) Swelling of Eyelids aspirin Allergy (Verified 11/01/22 17:47) shellfish derived Allergy (Verified 11/01/22 17:47) Home Medications: Insulin Glargine,Hum.rec.anlog [Lantus] 52 unit SQ HS 04/22/19 [History] Hx Tetanus, Diphtheria Vaccination/Date Given: No Hx Influenza Vaccination/Date Given: Yes (07/2013) Hx Pneumococcal Vaccination/Date Given: No Immunizations Up to Date: Yes Travel Risk - International Travel Have you traveled outside of the country in past 3 weeks: No - Coronavirus Screening Are you exhibiting any of the following symptoms?: No Close contact with a COVID-19 positive Pt in past 14-21 Days: No - Vaccine Status Have you recieved a Covid-19 vaccination: No - Review of Systems Constitutional: No Symptoms Eyes: No Symptoms Ears, Nose, & Throat: No Symptoms Respiratory: No Symptoms Cardiac: Chest Pain Abdominal/Gastrointestinal: No Symptoms Genitourinary Symptoms: No Symptoms Musculoskeletal: No Symptoms Skin: No Symptoms Neurological: No Symptoms Psychological: Anxiety Endocrine: No Symptoms Immunological/Allergic: No Symptoms - Past Medical History Pertinent Past Medical History: Yes Neurological History: No Pertinent History ENT History: No Pertinent History Cardiac History: No Pertinent History Respiratory History: No Pertinent History Endocrine Medical History: Diabetes Type II Musculoskeletal History: Arthritis, Fractures GI Medical History: No Pertinent History History: No Pertinent History Psycho-Social History: Anxiety Male Reproductive Disorders: Testicular Cancer Other Medical History: Hx of fractures but none involving LE. - Past Surgical History Past Surgical History: Yes Neuro Surgical History: No Pertinent History Cardiac: No Pertinent History Respiratory: No Pertinent History Gastrointestinal: No Pertinent History Genitourinary: No Pertinent History Musculoskeletal: No Pertinent History Male Surgical History: Testicular Surgery, Other - Social History Smoking Status: Never smoker Exposure to second hand smoke: Yes Drug Use: none Patient Lives Alone: No ([facility]) - Nursing Vital Signs Nursing Vital Signs: Initial Vital Signs Temperature 98.8 F 11/01/22 17:49 Pulse Rate 118 H 11/01/22 17:49 Respiratory Rate 28 H 11/01/22 17:49 Blood Pressure 113/94 11/01/22 17:49 O2 Sat by Pulse Oximetry 99 11/01/22 17:49 Pain Scale Pain Intensity 6 - Physical Exam General Appearance: no apparent distress, alert, anxiety Eye Exam: PERRL/EOMI, eyes nml inspection Ears, Nose, Throat Exam: normal ENT inspection, TMs normal, pharynx normal, moist mucous membranes Neck Exam: normal inspection, non-tender, supple, full range of motion Respiratory Exam: normal breath sounds, lungs clear Cardiovascular Exam: normal heart sounds, tachycardia Gastrointestinal/Abdomen Exam: soft, normal bowel sounds, No tenderness Back Exam: normal inspection, normal range of motion Extremity Exam: normal inspection, normal range of motion Neurologic Exam: alert, oriented x 3, cooperative, 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, nml cerebellar function, sensation nml, No normal mood/affect, No motor deficits Skin Exam: normal color SpO2 Interpretation: normal SpO2: 98 O2 Delivery: Room Air - Course EKG Interpreted by Me: RATE ([id number]), Sinus Tach, LAFB, NORMAL INTERVALS, Non- specific ST Changes Ordered Tests: Active Orders 24 hr Category Date Time Status Shoe Repairman STAT Care 11/01/22 18:14 Completed EKG-ER Only STAT Care 11/01/22 18:14 Completed IV Insertion STAT Care 11/01/22 18:14 Completed POCT Glucose Check OM.NOW Care 11/01/22 21:01 Completed CHEST 1 VIEW (PORTABLE) Stat Exams 11/01/22 18:14 Completed CBC W DIFF Stat Lab 11/01/22 18:17 Completed CK-Creatinine Phosphokinase Stat Lab 11/01/22 18:17 Completed CMP Stat Lab 11/01/22 18:17 Completed NT PRO BNP Stat Lab 11/01/22 18:17 Completed POCT GLUCOSE Stat Lab 11/01/22 19:24 Completed POCT GLUCOSE Stat Lab 11/01/22 21:36 Completed TROPONIN Q4H Lab 11/01/22 18:17 Completed TROPONIN Q4H Lab 11/01/22 21:07 Completed Medication Summary Discontinued Medications Generic Name Dose Route Start Last Admin Trade Name Elodia PRN Reason Stop Dose Admin Sodium Chloride 1,000 mls @ 999 mls/hr 11/01/22 18:14 11/01/22 18:22 Sodium Chloride 0.9% 1000 Ml IV 11/01/22 19:14 999 mls/hr .Q1H1M STA Administration Sodium Chloride Confirm 11/01/22 18:18 Sodium Chloride 0.9% 1000 Ml Administered 11/01/22 18:19 Dose 1,000 mls @ ud .ROUTE .STK-MED ONE Insulin Human Regular 12 unit 11/01/22 18:57 11/01/22 20:20 Insulin Regular, Human 1 Unit IV 11/01/22 18:58 Not Given STAT ONE Insulin Human Regular 10 unit 11/01/22 19:52 11/01/22 20:17 Insulin Regular, Human 1 Unit IV 11/01/22 19:53 10 unit STAT ONE Administration Insulin Human Regular Confirm 11/01/22 20:15 Insulin Regular, Human 1 Unit Administered 11/01/22 20:16 Dose 10 unit .ROUTE .STK-MED ONE Lorazepam 1 mg 11/01/22 18:15 11/01/22 18:21 Lorazepam 1 Mg Tablet PO 11/01/22 18:16 1 mg STAT ONE Administration Lorazepam Confirm 11/01/22 18:18 Lorazepam 1 Mg Tablet Administered 11/01/22 18:19 Dose 1 mg .ROUTE .STK-MED ONE Lab/Rad Data: Laboratory Result Diagrams 11/01/22 18:17 11/01/22 18:17 Laboratory Results 11/01/22 11/01/22 11/01/22 Range/Units 21:36 21:07 19:24 WBC (4.0-10.5) x10^3/uL RBC (4.1-5.6) x10^6/uL Hgb (12.5-18.0) g/dL Hct (42-50) % MCV (78-100) fL MCH (26-32) pg MCHC (32-36) g/dL RDW (11.5-14.0) % Plt Count (150-450) x10^3/uL MPV (7.5-11.0) fL Gran % (36.0-66.0) % Immature Gran % (Auto) (0.00-0.4) % Nucleat RBC Rel Count (0.00-0.1) % Eos # (Auto) (0-0.5) x10^3/uL Immature Gran # (Auto) (0.00-0.03) x10^3u/L Absolute Lymphs (auto) (1.0-4.6) x10^3/uL Absolute Monos (auto) (0.0-1.3) x10^3/uL Absolute Nucleated RBC (0.00-0.01) x10^3u/L Lymphocytes % (24.0-44.0) % Monocytes % (0.0-12.0) % Eosinophils % (0.00-5.0) % Basophils % (0.0-0.4) % Absolute Granulocytes (1.4-6.9) x10^3/uL Basophils # (0-0.4) x10^3/uL Sodium (137-145) mmol/L Potassium (3.5-5.1) mmol/L Chloride (98-107) mmol/L Carbon Dioxide (22-30) mmol/L Anion Gap (5-15) MEQ/L BUN (9-20) mg/dL Creatinine (0.66-1.25) mg/dL Estimated GFR ML/MIN Glucose (74-106) mg/dL POC Glucometer 269 H 355 H (74 to 106) mg/dL Calcium (8.4-10.2) mg/dL Total Bilirubin (0.2-1.3) mg/dL AST (17-59) U/L ALT (0-50) U/L Alkaline Phosphatase (38-126) U/L Creatine Kinase (55-170) U/L Troponin I < 0.012 (0.000-0.034) ng/mL NT-Pro-B Natriuret Pep (0-450) pg/mL Serum Total Protein (6.3-8.2) g/dL Albumin (3.5-5.0) g/dL 11/01/22 11/01/22 11/01/22 Range/Units 18:17 18:17 18:17 WBC 8.4 (4.0-10.5) x10^3/uL RBC 5.49 (4.1-5.6) x10^6/uL Hgb 15.8 (12.5-18.0) g/dL Hct 47.5 (42-50) % MCV 86.5 (78-100) fL MCH 28.8 (26-32) pg MCHC 33.3 (32-36) g/dL RDW 13.3 (11.5-14.0) % Plt Count 261 (150-450) x10^3/uL MPV 11.5 H (7.5-11.0) fL Gran % 72.5 H (36.0-66.0) % Immature Gran % (Auto) 0.5 H (0.00-0.4) % Nucleat RBC Rel Count 0.0 (0.00-0.1) % Eos # (Auto) 0.09 (0-0.5) x10^3/uL Immature Gran # (Auto) 0.04 H (0.00-0.03) x10^3u/L Absolute Lymphs (auto) 1.55 (1.0-4.6) x10^3/uL Absolute Monos (auto) 0.55 (0.0-1.3) x10^3/uL Absolute Nucleated RBC 0.00 (0.00-0.01) x10^3u/L Lymphocytes % 18.5 L (24.0-44.0) % Monocytes % 6.6 (0.0-12.0) % Eosinophils % 1.1 (0.00-5.0) % Basophils % 0.8 (0.0-0.4) % Absolute Granulocytes 6.08 (1.4-6.9) x10^3/uL Basophils # 0.07 (0-0.4) x10^3/uL Sodium 133 L (137-145) mmol/L Potassium 4.0 (3.5-5.1) mmol/L Chloride 103 (98-107) mmol/L Carbon Dioxide 23 (22-30) mmol/L Anion Gap 11.0 (5-15) MEQ/L BUN 13 (9-20) mg/dL Creatinine 0.89 (0.66-1.25) mg/dL Estimated GFR > 60.0 ML/MIN Glucose 478 H (74-106) mg/dL POC Glucometer (74 to 106) mg/dL Calcium 9.4 (8.4-10.2) mg/dL Total Bilirubin 0.80 (0.2-1.3) mg/dL AST 22 (17-59) U/L ALT 32 (0-50) U/L Alkaline Phosphatase 158 H (38-126) U/L Creatine Kinase 58 (55-170) U/L Troponin I < 0.012 (0.000-0.034) ng/mL NT-Pro-B Natriuret Pep < 11.5 (0-450) pg/mL Serum Total Protein 6.6 (6.3-8.2) g/dL Albumin 3.9 (3.5-5.0) g/dL - Progress Progress: improved, re-examined Progress Note: 11/01/22 21:46 42 years old is evaluated for possible seizure activity at the shelter. Patient has a history of diabetes mellitus, anxiety and was evaluated yesterday in the ER as well before going to shelter for DUI. Patient was purposefully moving all 4 extremities and upon holding his arm he stopped and was fully conversant with no confusion or altered level of consciousness. No focal neurodeficit. Patient reports he is very anxious and wants some anxiety medication, given Ativan orally and he is feeling much better. Normal shaking noticed after thorough counseling. EKG showed sinus tach with no ischemic changes. Negative troponins x2 and chest pain is better. Lab work fairly unremarkable for any acute cielo ctrolyte abnormality. Chest x-ray negative for any acute cardiopulmonary findings. Patient is requesting anxiety medication to go to shelter so he does not feel bad there. I believe patient needs outpatient antianxiety medication and have advised him to follow-up with his primary care once he is released from shelter tomorrow. Counseled about insulin use and control of diabetes. Patient blood sugar was 470s, given fluids and improved in 350s and given insulin and it is improving and currently in 200s. Discussed signs symptoms of worsening needing return to ER which he seems understanding. At this point I do not think patient needs any other work-up and is stable for discharge. 11/01/22 21:51 Counseled pt/family regarding: lab results, diagnosis, need for follow-up, rad results, smoking cessation - Departure Departure Disposition: Home Clinical Impression: Anxiety attack, Atypical chest pain, Hyperglycemia Condition: Stable Critical Care Time: No Referrals: NEO GARDNER NP [Primary Care Provider] - Follow up/PCP as directed (In 2 days for reevaluation) BART TONEY [CONSULTING PHYSICIAN] - Follow up/PCP as directed (Call early next week for reevaluation) Instructions: Chest Pain (DC), Anxiety, Adult ED Additional Instructions: Take Tylenol as needed for pain. Follow-up with primary care/cardiology for reevaluation. Return to ER for worsening of anxiety, chest pain palpitations or shortness of breath etc. monitor your blood sugar regularly, keep a log and follow-up with PCP. Take insulin as recommended.
== END 2022-11-01 22:09 | disposition home or self-care (01) ==
LOC: ED 17:45
DX: F41.0 Panic disorder [episodic paroxysmal anxiety] (principal); R07.89 Other chest pain; E11.65 Type 2 diabetes mellitus with hyperglycemia; R56.9 Unspecified convulsions; Z79.4 Long term (current) use of insulin; Z28.310 Unvaccinated for COVID-19
CPT/HCPCS: 36000; 36415; 71045; 80053; 82550; 82947; 83880; 84484; 85025; 93005; 93041; 96374; 99284; J1815; A9270-GY

== ENCOUNTER 2023-11-27 14:51 | Emergency (ER) | payer MEDICAID ==
[2023-11-27] MEDS ORDERED: Sodium Chloride 0.9% 1000 ML 1,000 ML IV STA ×2 (14:58→16:51)
[2023-11-27] MEDS ORDERED: Sodium Chloride 0.9% 1000 ML 1,000 ML ONE ×2 (15:09→16:56)
[2023-11-27 15:14] LABS: A-aADO2 15; ABG HEMOGLOBIN 15.9; ABG POTASSIUM 4.2 (3.5-5.1); ABG SITE RIGHT RADIAL; ARTERIAL BLD GAS O2 SATURATION 97.6 % (95-100); ARTERIAL BLOOD GAS BASE EXCESS 1.9 (-2.0-2.0); ARTERIAL BLOOD GAS FIO2 21 %; ARTERIAL BLOOD GAS PCO2 41 mmHg (35-45); ARTERIAL BLOOD GAS PO2 83 mmHg (75-100); ARTERIAL BLOOD GAS pH 7.42 (7.35-7.45); CARBOXYHEMOGLOBIN 1.1 % THgb (0.0-6.9); HCO3- 26.6 (22-28); HGB O2 SAT 95.4 g/dF (94-100); Methhemoglobin 1.2 % (1.4-1.5); paO2 pAO1 0.85
[2023-11-27 15:15] LABS: ALLEN TEST OK? YES
[2023-11-27 15:23] LABS: Basophil (Absolute #) 0.08 x10^3/uL (0-0.4); Eosinophil % 2.1 % (0.00-5.0); Eosinophil (Absolute #) 0.17 x10^3/uL (0-0.5); Hematocrit 44.4 % (42-50); Hemoglobin 15.4 g/dL (12.5-18.0); IMMATURE GRAN # 0.03 x10^3u/L (0.00-0.03); IMMATURE GRAN % 0.4 % (0.00-0.4); Lymphocyte (Absolute #) 1.91 x10^3/uL (1.0-4.6); Lymphocytes % 23.3 % (24.0-44.0); Mean Cell Volume 84.3 fL (78-100); Mean Corpuscular Hemoglobin 29.2 pg (26-32); Mean Corpuscular Hgb Concent. 34.7 g/dL (32-36); Mean Platelet Volume 11.6 fL (7.5-11.0); Monocyte (Absolute #) 0.62 x10^3/uL (0.0-1.3); Monocytes % 7.6 % (0.0-12.0); Neutrophil % 65.6 % (36.0-66.0); Platelet Count 264 x10^3/uL (150-450); Red Blood Count 5.27 x10^6/uL (4.1-5.6); Red Cell Distribution Width 12.5 % (11.5-14.0); White Blood Count 8.2 x10^3/uL (4.0-10.5)
--- NOTE | 2023-11-27 15:37 | XRAY ---
Indication: Chest pain. Comparison: November 01, 2022 Portable apical lordotic chest less inflated and remains clear. Heart and mediastinal structures within normal limits. Bony thorax intact again with osteopenia and old left clavicle fracture. Impression: Nonacute underinflated chest.
[2023-11-27 15:39] LABS: INR 0.88 (0.8-3.0); PROTIME 9.7 SECONDS (9.4-12.5); PTT 21.9 SECONDS (25.1-36.5)
[2023-11-27 15:48] LABS: ADD URINE CULTURE? NO (NO); Appearance Clear (Clear); Bacteria None Seen /HPF (None Seen); Bilirubin Negative (Negative); Blood Negative (Negative); Epithelial Cells None Seen /HPF (None Seen); Glucose, Urine >=1000 mg/dL (Negative); Hyaline Casts NONE SEEN /LPF (0-2); Ketones Negative (Negative); Leukocyte Esterase Negative (Negative); Nitrite Negative (Negative); Protein,Urine Dip Negative (Negative); RBC 0-2 /HPF (0-5); Specific Gravity >=1.030 (1.005-1.030); Urobilinogen 0.2 mg/dL (0.2); WBC 0-2 /HPF (0-5)
[2023-11-27 15:50] LABS: ALBUMIN 4.1 g/dL (3.5-5.0); ANION GAP 11.2 MEQ/L (5-15); BILIRUBIN,TOTAL 0.7 mg/dL (0.2-1.3); Calcium 10.1 mg/dL (8.4-10.2); Creatinine 1 0.78 mg/dL (0.66-1.25); EST GLOMERULAR FILTRATION RATE 112.8 ML/MIN; Potassium 4.1 mmol/L (3.5-5.1); Total Protein 7.1 g/dL (6.3-8.2)
[2023-11-27 16:02] VITALS: PULSE 115; RESP 24; O2SAT 99
[2023-11-27] MEDS ORDERED: HUMULIN R SQ ONE (16:05)
[2023-11-27] MEDS ORDERED: HUMULIN R IV ONE (16:05)
[2023-11-27] MEDS ORDERED: HUMULIN R ONE ×2 (16:19→16:20)
--- NOTE | 2023-11-27 16:27 | ERPHSYRPT ---
- History of Present Illness Source: patient, police Exam Limitations: other (Poor historian) Patient Subjective Stated Complaint: hyperglycemia, chest tightness Triage Nursing Assessment: Pt brought to the ER by law enforcement, tachycardic, hypertensive, rates chest tightness as 6/10, pt is crying and arching his back and then pretends to pass out, pt was brought to the ER by law enforcement and then he began saying he was having chest tightness, pt was at [facility] a couple of days ago and was told to have a blood sugar of 900 and they got it down to 350 before he was discharge, glucose upon arrival was 497, pulses bounding, skin n/w/d, no difficulty with breathing Physician History: Patient is a 43-year-old male who was discharged(or left)from [facility] last night where he was being treated for methamphetamine abuse and was subsequently arrested for an outstanding warrant developed developed chest pain, dyspnea, and elevated glucose upon arrest. Patient states that he is a type I diabetic and was treated for hyperglycemia at [facility] 2 nights ago and discharged.Pain is 4 out of 10, described as pressure, and does not radiate. He denies nausea, vomiting, and diaphoresis. Nothing makes the pain better or worse. Timing/Duration: other ( chest pain for several days.) Severity: moderate Modifying Factors: Improves With: nothing Associated Symptoms: shortness of breath, chest pain Allergies/Adverse Reactions: NSAIDS (Non-Steroidal Anti-Inflamma Allergy (Intermediate, Verified 11/01/22 17:47) Swelling of Eyelids aspirin Allergy (Verified 11/01/22 17:47) shellfish derived Allergy (Verified 11/01/22 17:47) Home Medications: Insulin Glargine,Hum.rec.anlog [Lantus] 22 unit SQ 04/22/19 [History] Hx Tetanus, Diphtheria Vaccination/Date Given: No Hx Influenza Vaccination/Date Given: Yes (07/2013) Hx Pneumococcal Vaccination/Date Given: No Travel Risk - International Travel Have you traveled outside of the country in past 3 weeks: No - Coronavirus Screening Are you exhibiting any of the following symptoms?: No Close contact with a COVID-19 positive Pt in past 14-21 Days: No - Vaccine Status Have you recieved a Covid-19 vaccination: No - Review of Systems Constitutional: No Symptoms, Malaise Eyes: No Symptoms Ears, Nose, & Throat: No Symptoms Respiratory: No Symptoms, Dyspnea Cardiac: No Symptoms, Chest Pain Abdominal/Gastrointestinal: No Symptoms Genitourinary Symptoms: No Symptoms Musculoskeletal: No Symptoms Skin: No Symptoms Neurological: No Symptoms Psychological: No Symptoms Endocrine: No Symptoms Hematologic/Lymphatic: No Symptoms Immunological/Allergic: No Symptoms - Past Medical History Pertinent Past Medical History: Yes Neurological History: No Pertinent History ENT History: No Pertinent History Cardiac History: No Pertinent History Respiratory History: No Pertinent History Endocrine Medical History: Diabetes Type II Musculoskeletal History: Arthritis, Fractures GI Medical History: No Pertinent History History: No Pertinent History Psycho-Social History: Anxiety Male Reproductive Disorders: Testicular Cancer Other Medical History: Hx of fractures but none involving LE. - Past Surgical History Past Surgical History: Yes Neuro Surgical History: No Pertinent History Cardiac: No Pertinent History Respiratory: No Pertinent History Gastrointestinal: No Pertinent History Genitourinary: No Pertinent History Musculoskeletal: No Pertinent History Male Surgical History: Testicular Surgery, Other - Social History Smoking Status: Never smoker Exposure to second hand smoke: Yes Drug Use: methamphetamines Patient Lives Alone: Yes - Nursing Vital Signs Nursing Vital Signs: Initial Vital Signs Pulse Rate 135 H 11/27/23 14:56 Respiratory Rate 23 11/27/23 14:56 Blood Pressure 144/103 11/27/23 14:56 O2 Sat by Pulse Oximetry 96 11/27/23 14:56 Pain Scale Pain Intensity 6 Tachycardic/hypertensive - Physical Exam General Appearance: no apparent distress, anxiety Eye Exam: PERRL/EOMI, eyes nml inspection Ears, Nose, Throat Exam: normal ENT inspection, TMs normal, pharynx normal, moist mucous membranes Neck Exam: normal inspection, non-tender, supple, full range of motion, No meningismus, No mass, No Brudzinski, No Kernig's Respiratory Exam: normal breath sounds, lungs clear, airway intact, No respiratory distress Cardiovascular Exam: tachycardia, capillary refill <2 sec, No murmur Gastrointestinal/Abdomen Exam: soft, normal bowel sounds Extremity Exam: normal inspection, normal range of motion Neurologic Exam: alert, oriented x 3, cooperative, bag making machine tender II-XII nml as tested, normal mood/affect, nml cerebellar function, nml station & gait, sensation nml Skin Exam: normal color, warm, dry Lymphatic Exam: No adenopathy SpO2 Interpretation: normal SpO2: 99 O2 Delivery: Room Air - Course Nursing assessment & vital signs reviewed: Yes EKG Interpreted by Me: RATE ( sinus tachycardia/rate 127/normal QT- QTc/nonspecific ST-T wave changes/possible LVH/marked artifact present/interpreted contemporaneously per ER physician.) - Radiology Exams Chest X-ray Interpretation: Reviewed by me ( no active disease) Ordered Tests: Active Orders 24 hr Category Date Time Status EKG-ER Only STAT Care 11/27/23 14:58 Active IV Insertion STAT Care 11/27/23 14:58 Active CHEST 1 VIEW (PORTABLE) Stat Exams 11/27/23 14:59 Completed ABG [ARTERIAL BLOOD GASES] Stat Lab 11/27/23 15:05 Completed BMP Stat Lab 11/27/23 17:45 Completed CBC W DIFF Stat Lab 11/27/23 14:58 Completed CMP Stat Lab 11/27/23 14:28 Completed ETHYL ALCOHOL Stat Lab 11/27/23 15:30 Completed POCT GLUCOSE Stat Lab 11/27/23 16:50 Completed PROTIME WITH INR Stat Lab 11/27/23 14:28 Completed PTT Stat Lab 11/27/23 14:28 Completed TROPONIN Q4H Lab 11/27/23 17:45 Completed TROPONIN Q4H Lab 11/27/23 21:45 Ordered TROPONIN Q4H Lab 11/28/23 01:45 Ordered UA W/RFX UR CULTURE Stat Lab 11/27/23 15:31 Completed Urine Triage Profile Stat Lab 11/27/23 15:57 Completed Medication Summary Discontinued Medications Generic Name Dose Route Start Last Admin Trade Name Freq PRN Reason Stop Dose Admin Sodium Chloride 1,000 mls @ 999 mls/hr 11/27/23 14:58 11/27/23 16:24 Sodium Chloride 0.9% 1000 Ml IV 11/27/23 15:58 Infused .Q1H1M STA Infusion Sodium Chloride Confirm 11/27/23 15:09 Sodium Chloride 0.9% 1000 Ml Administered 11/27/23 15:10 Dose 1,000 mls @ ud .ROUTE .STK-MED ONE Sodium Chloride 1,000 mls @ 999 mls/hr 11/27/23 16:51 11/27/23 18:08 Sodium Chloride 0.9% 1000 Ml IV 11/27/23 17:51 Infused .Q1H1M STA Infusion Sodium Chloride Confirm 11/27/23 16:56 Sodium Chloride 0.9% 1000 Ml Administered 11/27/23 16:57 Dose 1,000 mls @ ud .ROUTE .STK-[facility] ONE Insulin Human Regular 10 unit 11/27/23 16:05 11/27/23 16:21 Insulin Regular, Human 1 Unit IV 11/27/23 16:06 10 unit STAT ONE Administration Insulin Human Regular 10 unit 11/27/23 16:05 11/27/23 16:20 Insulin Regular, Human 1 Unit SQ 11/27/23 16:06 10 unit STAT ONE Administration Insulin Human Regular Confirm 11/27/23 16:19 Insulin Regular, Human 1 Unit Administered 11/27/23 16:20 Dose 10 unit .ROUTE .STK-[facility] ONE Insulin Human Regular Confirm 11/27/23 16:20 Insulin Regular, Human 1 Unit Administered 11/27/23 16:21 Dose 10 unit .ROUTE .[facility] ONE Lab/Rad Data: Laboratory Result Diagrams 11/27/23 14:58 11/27/23 17:45 Laboratory Results 11/27/23 11/27/23 11/27/23 Range/Units 17:45 17:45 16:50 WBC (4.0-10.5) x10^3/uL RBC (4.1-5.6) x10^6/uL Hgb (12.5-18.0) g/dL Hct (42-50) % MCV (78-100) fL MCH (26-32) pg MCHC (32-36) g/dL RDW (11.5-14.0) % Plt Count (150-450) x10^3/uL MPV (7.5-11.0) fL Gran % (36.0-66.0) % Immature Gran % (Auto) (0.00-0.4) % Nucleat RBC Rel Count (0.00-0.1) % Eos # (Auto) (0-0.5) x10^3/uL Immature Gran # (Auto) (0.00-0.03) x10^3u/L Absolute Lymphs (auto) (1.0-4.6) x10^3/uL Absolute Monos (auto) (0.0-1.3) x10^3/uL Absolute Nucleated RBC (0.00-0.01) x10^3u/L Lymphocytes % (24.0-44.0) % Monocytes % (0.0-12.0) % Eosinophils % (0.00-5.0) % Basophils % (0.0-0.4) % Absolute Granulocytes (1.4-6.9) x10^3/uL Basophils # (0-0.4) x10^3/uL PT (9.4-12.5) SECONDS INR (0.8-3.0) APTT (25.1-36.5) SECONDS Puncture Site pCO2 (35-45) mmHg pO2 (75-100) mmHg Base Excess (-2.0-2.0) O2 Saturation (94-100) g/dF ABG pH (7.35-7.45) ABG HCO3 (22-28) ABG O2 Sat (Measured) (95-100) % Chan Test A-a Gradient a/A Ratio Hemoglobin Carboxyhemoglobin (0.0-6.9) % THgb Methemoglobin (1.4-1.5) % Temperature C POC O2 Flow Rate % Sodium 135 L (137-145) mmol/L Potassium 4.0 (3.5-5.1) mmol/L Chloride 105 (98-107) mmol/L Carbon Dioxide 26 (22-30) mmol/L Anion Gap 8.0 (5-15) MEQ/L BUN 11 (9-20) mg/dL Creatinine 0.75 (0.66-1.25) mg/dL Estimated GFR 114.1 ML/MIN Glucose 357 H (74-106) mg/dL POC Glucometer 411 H (74 to 106) mg/dL Calcium 9.3 (8.4-10.2) mg/dL Total Bilirubin (0.2-1.3) mg/dL AST (17-59) U/L ALT (0-50) U/L Alkaline Phosphatase (38-126) U/L Troponin (0.00-0.03) ng/mL Troponin I < 0.012 (0.000-0.034) ng/mL Serum Total Protein (6.3-8.2) g/dL Albumin (3.5-5.0) g/dL Urine Color (Yellow) Urine Appearance (Clear) Urine pH (4.6-8.0) Ur Specific [place] (1.005-1.030) Urine Protein (Negative) Urine Glucose (UA) (Negative) mg/dL Urine Ketones (Negative) Urine Blood (Negative) Urine Nitrite (Negative) Urine Bilirubin (Negative) Urine Urobilinogen (0.2) mg/dL Ur Leukocyte Esterase (Negative) U Hyaline Cast (Auto) (0-2) /LPF Urine Microscopic RBC (0-5) /HPF Urine Microscopic WBC (0-5) /HPF Ur Epithelial Cells (None Seen) /HPF Urine Bacteria (None Seen) /HPF Urine Culture Reflexed (NO) Urine Opiates Level (NEGATIVE) Ur Methadone (NEGATIVE) Urine Barbiturates (NEGATIVE) Ur Phencyclidine (PCP) (NEGATIVE) Urine Amphetamine (NEGATIVE) U Benzodiazepine Level (NEGATIVE) Urine Cocaine (NEGATIVE) Urine Marijuana (THC) (NEGATIVE) Ethyl Alcohol (0-10) mg/dL 11/27/23 11/27/23 11/27/23 Range/Units 15:57 15:31 15:30 WBC (4.0-10.5) x10^3/uL RBC (4.1-5.6) x10^6/uL Hgb (12.5-18.0) g/dL Hct (42-50) % MCV (78-100) fL MCH (26-32) pg MCHC (32-36) g/dL RDW (11.5-14.0) % Plt Count (150-450) x10^3/uL MPV (7.5-11.0) fL Gran % (36.0-66.0) % Immature Gran % (Auto) (0.00-0.4) % Nucleat RBC Rel Count (0.00-0.1) % Eos # (Auto) (0-0.5) x10^3/uL Immature Gran # (Auto) (0.00-0.03) x10^3u/L Absolute Lymphs (auto) (1.0-4.6) x10^3/uL Absolute Monos (auto) (0.0-1.3) x10^3/uL Absolute Nucleated RBC (0.00-0.01) x10^3u/L Lymphocytes % (24.0-44.0) % Monocytes % (0.0-12.0) % Eosinophils % (0.00-5.0) % Basophils % (0.0-0.4) % Absolute Granulocytes (1.4-6.9) x10^3/uL Basophils # (0-0.4) x10^3/uL PT (9.4-12.5) SECONDS INR (0.8-3.0) APTT (25.1-36.5) SECONDS Puncture Site pCO2 (35-45) mmHg pO2 (75-100) mmHg Base Excess (-2.0-2.0) O2 Saturation (94-100) g/dF ABG pH (7.35-7.45) ABG HCO3 (22-28) ABG O2 Sat (Measured) (95-100) % Chan Test A-a Gradient a/A Ratio Hemoglobin Carboxyhemoglobin (0.0-6.9) % THgb Methemoglobin (1.4-1.5) % Temperature C POC O2 Flow Rate % Sodium (137-145) mmol/L Potassium (3.5-5.1) mmol/L Chloride (98-107) mmol/L Carbon Dioxide (22-30) mmol/L Anion Gap (5-15) MEQ/L BUN (9-20) mg/dL Creatinine (0.66-1.25) mg/dL Estimated GFR ML/MIN Glucose (74-106) mg/dL POC Glucometer (74 to 106) mg/dL Calcium (8.4-10.2) mg/dL Total Bilirubin (0.2-1.3) mg/dL AST (17-59) U/L ALT (0-50) U/L Alkaline Phosphatase (38-126) U/L Troponin (0.00-0.03) ng/mL Troponin I (0.000-0.034) ng/mL Serum Total Protein (6.3-8.2) g/dL Albumin (3.5-5.0) g/dL Urine Color Yellow (Yellow) Urine Appearance Clear (Clear) Urine pH 6.0 (4.6-8.0) Ur Specific [place] >=1.030 A (1.005-1.030) Urine Protein Negative (Negative) Urine Glucose (UA) >=1000 A (Negative) mg/dL Urine Ketones Negative (Negative) Urine Blood Negative (Negative) Urine Nitrite Negative (Negative) Urine Bilirubin Negative (Negative) Urine Urobilinogen 0.2 (0.2) mg/dL Ur Leukocyte Esterase Negative (Negative) U Hyaline Cast (Auto) NONE SEEN (0-2) /LPF Urine Microscopic RBC 0-2 (0-5) /HPF Urine Microscopic WBC 0-2 (0-5) /HPF Ur Epithelial Cells None Seen (None Seen) /HPF Urine Bacteria None Seen (None Seen) /HPF Urine Culture Reflexed NO (NO) Urine Opiates Level NEGATIVE (NEGATIVE) Ur Methadone NEGATIVE (NEGATIVE) Urine Barbiturates NEGATIVE (NEGATIVE) Ur Phencyclidine (PCP) NEGATIVE (NEGATIVE) Urine Amphetamine NEGATIVE (NEGATIVE) U Benzodiazepine Level NEGATIVE (NEGATIVE) Urine Cocaine NEGATIVE (NEGATIVE) Urine Marijuana (THC) NEGATIVE (NEGATIVE) Ethyl Alcohol < 10 (0-10) mg/dL 11/27/23 11/27/23 11/27/23 Range/Units 15:05 14:58 14:28 WBC 8.2 (4.0-10.5) x10^3/uL RBC 5.27 (4.1-5.6) x10^6/uL Hgb 15.4 (12.5-18.0) g/dL Hct 44.4 (42-50) % MCV 84.3 (78-100) fL MCH 29.2 (26-32) pg MCHC 34.7 (32-36) g/dL RDW 12.5 (11.5-14.0) % Plt Count 264 (150-450) x10^3/uL MPV 11.6 H (7.5-11.0) fL Gran % 65.6 (36.0-66.0) % Immature Gran % (Auto) 0.4 (0.00-0.4) % Nucleat RBC Rel Count 0.0 (0.00-0.1) % Eos # (Auto) 0.17 (0-0.5) x10^3/uL Immature Gran # (Auto) 0.03 (0.00-0.03) x10^3u/L Absolute Lymphs (auto) 1.91 (1.0-4.6) x10^3/uL Absolute Monos (auto) 0.62 (0.0-1.3) x10^3/uL Absolute Nucleated RBC 0.00 (0.00-0.01) x10^3u/L Lymphocytes % 23.3 L (24.0-44.0) % Monocytes % 7.6 (0.0-12.0) % Eosinophils % 2.1 (0.00-5.0) % Basophils % 1.0 (0.0-0.4) % Absolute Granulocytes 5.40 (1.4-6.9) x10^3/uL Basophils # 0.08 (0-0.4) x10^3/uL PT (9.4-12.5) SECONDS INR (0.8-3.0) APTT (25.1-36.5) SECONDS Puncture Site RIGHT RADIAL pCO2 41 (35-45) mmHg pO2 83 (75-100) mmHg Base Excess 1.9 (-2.0-2.0) O2 Saturation 95.4 (94-100) g/dF ABG pH 7.42 (7.35-7.45) ABG HCO3 26.6 (22-28) ABG O2 Sat (Measured) 97.6 (95-100) % Chan Test YES A-a Gradient 15 a/A Ratio 0.85 Hemoglobin 15.9 Carboxyhemoglobin 1.1 (0.0-6.9) % THgb Methemoglobin 1.2 L (1.4-1.5) % Temperature 37.0 C POC O2 Flow Rate 21 % Sodium (137-145) mmol/L Potassium 4.2 (3.5-5.1) mmol/L Chloride (98-107) mmol/L Carbon Dioxide (22-30) mmol/L Anion Gap (5-15) MEQ/L BUN (9-20) mg/dL Creatinine (0.66-1.25) mg/dL Estimated GFR ML/MIN Glucose (74-106) mg/dL POC Glucometer (74 to 106) mg/dL Calcium (8.4-10.2) mg/dL Total Bilirubin (0.2-1.3) mg/dL AST (17-59) U/L ALT (0-50) U/L Alkaline Phosphatase (38-126) U/L Troponin 0.00 (0.00-0.03) ng/mL Troponin I (0.000-0.034) ng/mL Serum Total Protein (6.3-8.2) g/dL Albumin (3.5-5.0) g/dL Urine Color (Yellow) Urine Appearance (Clear) Urine pH (4.6-8.0) Ur Specific [place] (1.005-1.030) Urine Protein (Negative) Urine Glucose (UA) (Negative) mg/dL Urine Ketones (Negative) Urine Blood (Negative) Urine Nitrite (Negative) Urine Bilirubin (Negative) Urine Urobilinogen (0.2) mg/dL Ur Leukocyte Esterase (Negative) U Hyaline Cast (Auto) (0-2) /LPF Urine Microscopic RBC (0-5) /HPF Urine Microscopic WBC (0-5) /HPF Ur Epithelial Cells (None Seen) /HPF Urine Bacteria (None Seen) /HPF Urine Culture Reflexed (NO) Urine Opiates Level (NEGATIVE) Ur Methadone (NEGATIVE) Urine Barbiturates (NEGATIVE) Ur Phencyclidine (PCP) (NEGATIVE) Urine Amphetamine (NEGATIVE) U Benzodiazepine Level (NEGATIVE) Urine Cocaine (NEGATIVE) Urine Marijuana (THC) (NEGATIVE) Ethyl Alcohol (0-10) mg/dL 11/27/23 11/27/23 Range/Units 14:28 14:28 WBC (4.0-10.5) x10^3/uL RBC (4.1-5.6) x10^6/uL Hgb (12.5-18.0) g/dL Hct (42-50) % MCV (78-100) fL MCH (26-32) pg MCHC (32-36) g/dL RDW (11.5-14.0) % Plt Count (150-450) x10^3/uL MPV (7.5-11.0) fL Gran % (36.0-66.0) % Immature Gran % (Auto) (0.00-0.4) % Nucleat RBC Rel Count (0.00-0.1) % Eos # (Auto) (0-0.5) x10^3/uL Immature Gran # (Auto) (0.00-0.03) x10^3u/L Absolute Lymphs (auto) (1.0-4.6) x10^3/uL Absolute Monos (auto) (0.0-1.3) x10^3/uL Absolute Nucleated RBC (0.00-0.01) x10^3u/L Lymphocytes % (24.0-44.0) % Monocytes % (0.0-12.0) % Eosinophils % (0.00-5.0) % Basophils % (0.0-0.4) % Absolute Granulocytes (1.4-6.9) x10^3/uL Basophils # (0-0.4) x10^3/uL PT 9.7 (9.4-12.5) SECONDS INR 0.88 (0.8-3.0) APTT 21.9 L (25.1-36.5) SECONDS Puncture Site pCO2 (35-45) mmHg pO2 (75-100) mmHg Base Excess (-2.0-2.0) O2 Saturation (94-100) g/dF ABG pH (7.35-7.45) ABG HCO3 (22-28) ABG O2 Sat (Measured) (95-100) % Chan Test A-a Gradient a/A Ratio Hemoglobin Carboxyhemoglobin (0.0-6.9) % THgb Methemoglobin (1.4-1.5) % Temperature C POC O2 Flow Rate % Sodium 131 L (137-145) mmol/L Potassium 4.1 (3.5-5.1) mmol/L Chloride 99 (98-107) mmol/L Carbon Dioxide 25 (22-30) mmol/L Anion Gap 11.2 (5-15) MEQ/L BUN 12 (9-20) mg/dL Creatinine 0.78 (0.66-1.25) mg/dL Estimated GFR 112.8 ML/MIN Glucose 515 H* (74-106) mg/dL POC Glucometer (74 to 106) mg/dL Calcium 10.1 (8.4-10.2) mg/dL Total Bilirubin 0.70 (0.2-1.3) mg/dL AST 22 (17-59) U/L ALT 29 (0-50) U/L Alkaline Phosphatase 156 H (38-126) U/L Troponin (0.00-0.03) ng/mL Troponin I (0.000-0.034) ng/mL Serum Total Protein 7.1 (6.3-8.2) g/dL Albumin 4.1 (3.5-5.0) g/dL Urine Color (Yellow) Urine Appearance (Clear) Urine pH (4.6-8.0) Ur Specific [place] (1.005-1.030) Urine Protein (Negative) Urine Glucose (UA) (Negative) mg/dL Urine Ketones (Negative) Urine Blood (Negative) Urine Nitrite (Negative) Urine Bilirubin (Negative) Urine Urobilinogen (0.2) mg/dL Ur Leukocyte Esterase (Negative) U Hyaline Cast (Auto) (0-2) /LPF Urine Microscopic RBC (0-5) /HPF Urine Microscopic WBC (0-5) /HPF Ur Epithelial Cells (None Seen) /HPF Urine Bacteria (None Seen) /HPF Urine Culture Reflexed (NO) Urine Opiates Level (NEGATIVE) Ur Methadone (NEGATIVE) Urine Barbiturates (NEGATIVE) Ur Phencyclidine (PCP) (NEGATIVE) Urine Amphetamine (NEGATIVE) U Benzodiazepine Level (NEGATIVE) Urine Cocaine (NEGATIVE) Urine Marijuana (THC) (NEGATIVE) Ethyl Alcohol (0-10) mg/dL - Progress Progress: improved Progress Note: 11/27/23 18:32 Nursing note and vital signs reviewed. No food or housing insecurity noted. All lab results reviewed and shared with patient. Chest x-ray result reviewed and shared with patient. Patient arrived with glucose level of 515, so IV access was started and 1 L normal saline bolus given. Patient given 10 units IV regular insulin and 10 units sq regular insulin along with a second bolus of 1 L normal saline with decrease of glucose to acceptable level. Patient was not in DKA as he was not ketotic, did not had and anion gap, and pH was within normal limits. Patient's troponin was negative x 2 and although he was tachycardic upon ER arrival, EKG was without acute ST segment changes. Patient's heart score is 3 and his Wells Score for PE is 1.5 demonstrated 1.3% chance of pulmonary embolus. patient discharged in care of police in stable condition with instructions for patient to follow-up with the shelter physician or his PCP if he is released in the next few days. Chest pain greatly improved upon discharge 11/27/23 18:33 Counseled pt/family regarding: lab results, diagnosis, need for follow-up, rad results Medical Desision Making - Social Determinants of Health Pt's dx & treatment plan are significantly limited by SDOH: Unemployed - Diagnostic Testing Diagnostic test were ordered, analyzed, and reviewed by me: Yes Radiological Interpretation: Reviewed by me - Risk of complications The pt has a mod risk of morbidity or mortality based on: Need for prescription drug management - Departure Departure Disposition: Long-Term/Long-Term Clinical Impression: Hyperglycemia, Chest pain Condition: Stable Critical Care Time: No Referrals: ROGELIO HAIDER [Primary Care Provider] - Follow up/PCP as directed Instructions: Chest Pain (DC), High Blood Sugar, Adult (DC) Additional Instructions: Follow-up with your family MD or shelter MD in 1 to 2 days. Continue with your usual insulin dose. Return to ER for increasing chest pain, shortness of breath, or elevated blood sugar.
[2023-11-27 16:52] LABS: Amphetamine,Urine NEGATIVE (NEGATIVE); Barbiturate,Urine NEGATIVE (NEGATIVE); Benzodiazepine,Urine NEGATIVE (NEGATIVE); Cocaine,Urine NEGATIVE (NEGATIVE); Methadone,Urine NEGATIVE (NEGATIVE); Opiate,Urine NEGATIVE (NEGATIVE); PCP,Urine NEGATIVE (NEGATIVE); THC,Urine NEGATIVE (NEGATIVE)
[2023-11-27 18:06] LABS: Calcium 9.3 mg/dL (8.4-10.2); Creatinine 1 0.75 mg/dL (0.66-1.25); EST GLOMERULAR FILTRATION RATE 114.1 ML/MIN
[2023-11-27 18:13] VITALS: BP 113/75
== END 2023-11-27 18:32 ==
LOC: ED 14:51
DX: E10.65 Type 1 diabetes mellitus with hyperglycemia (principal); R07.9 Chest pain, unspecified; R06.00 Dyspnea, unspecified; Z79.4 Long term (current) use of insulin; Z28.310 Unvaccinated for COVID-19; Z56.0 Unemployment, unspecified
CPT/HCPCS: 36415; 36600; 71045; 80048; 80053; 80307; 81001; 82077; 82375; 82803; 82947; 84484; 85025; 85610; 85730; 93005; 96360; 96372; 96374; 99284; J1815

== ENCOUNTER 2023-12-14 18:22 | Emergency (ER) | payer MEDICAID ==
--- NOTE | 2023-12-14 18:45 | ERPHSYRPT ---
- History of Present Illness Time Seen by Provider: 12/14/23 18:45 Source: patient, family Exam Limitations: no limitations Physician History: This is a right-handed 43-year-old white male patient of Dr. Pelaez who fell today injuring his left clavicle and has pain in his right shoulder. Symptoms in both areas are worse with movement. There is obvious deformity in the left clavicle. Patient states that he is allergic to NSAIDs. Patient did not hit his head. He has no headache and he has no neck pain. Occurred: this afternoon Reason for Fall: fell from standing pos Injuries/Pain Location: upper extremity (Left clavicle and right shoulder) Loss of Consciousness: no loss of consciousness Quality: aching Severity of Pain-Max: moderate Severity of Pain-Current: moderate Modifying Factors: Improves With: movement Associated Symptoms (Fall): extremity injury (Left clavicle and right shoulder), No headache, No neck pain, No shortness of breath, No vision changes Allergies/Adverse Reactions: NSAIDS (Non-Steroidal Anti-Inflamma Allergy (Intermediate, Verified 12/14/23 18:43) Swelling of Eyelids aspirin Allergy (Verified 12/14/23 18:43) shellfish derived Allergy (Verified 12/14/23 18:43) Home Medications: Insulin Glargine,Hum.rec.anlog [Lantus] 22 unit SQ HS 04/22/19 [History] Hx Tetanus, Diphtheria Vaccination/Date Given: No Hx Influenza Vaccination/Date Given: Yes (07/2013) Hx Pneumococcal Vaccination/Date Given: No Travel Risk - International Travel Have you traveled outside of the country in past 3 weeks: No - Coronavirus Screening Are you exhibiting any of the following symptoms?: No Close contact with a COVID-19 positive Pt in past 14-21 Days: No - Vaccine Status Have you recieved a Covid-19 vaccination: No - Review of Systems Constitutional: No Symptoms Eyes: No Symptoms Ears, Nose, & Throat: No Symptoms Respiratory: No Symptoms Cardiac: No Symptoms Abdominal/Gastrointestinal: No Symptoms Genitourinary Symptoms: No Symptoms Musculoskeletal: Deformity (Left clavicle), Fall, Injury (Left clavicle and right shoulder) Skin: No Symptoms Neurological: No Symptoms Psychological: No Symptoms Endocrine: No Symptoms Hematologic/Lymphatic: No Symptoms Immunological/Allergic: No Symptoms All Other Systems: Reviewed and Negative - Past Medical History Pertinent Past Medical History: Yes Neurological History: No Pertinent History ENT History: No Pertinent History Cardiac History: No Pertinent History Respiratory History: No Pertinent History Endocrine Medical History: Diabetes Type II Musculoskeletal History: Arthritis, Fractures GI Medical History: No Pertinent History History: No Pertinent History Psycho-Social History: Anxiety Male Reproductive Disorders: Testicular Cancer Other Medical History: Hx of fractures but none involving LE. - Past Surgical History Past Surgical History: Yes Neuro Surgical History: No Pertinent History Cardiac: No Pertinent History Respiratory: No Pertinent History Gastrointestinal: No Pertinent History Genitourinary: No Pertinent History Musculoskeletal: No Pertinent History Male Surgical History: Testicular Surgery, Other - Social History Smoking Status: Never smoker Exposure to second hand smoke: Yes Drug Use: methamphetamines Patient Lives Alone: Yes - Nursing Vital Signs Nursing Vital Signs: Initial Vital Signs Temperature 97.8 F 12/14/23 18:45 Pulse Rate 106 H 12/14/23 18:45 Respiratory Rate 18 12/14/23 18:45 Blood Pressure 121/104 12/14/23 18:45 O2 Sat by Pulse Oximetry 99 12/14/23 18:45 Pain Scale Pain Intensity 5 - Marcial Coma Score Best Eye Response ([place]): (4) open spontaneously Best Verbal Response ([place]): (5) oriented Best Motor Response ([place]): (6) obeys commands Marcial Total: 15 - Physical Exam General Appearance: no apparent distress, alert, anxiety Head Injury: no evidence of injury Eye Exam: PERRL/EOMI, eyes nml inspection ENT Exam: airway nml, nml ext.inspection, No evidence of ENT injury, No dental injury Neck Exam: supple, trachea midline, full range of motion, normal alignment, normal inspection Respiratory/Chest Exam: normal breath sounds, No chest tenderness, No r espiratory distress, No ecchymosis, No crepitus Cardiovascular Exam: normal heart sounds, regular rate/rhythm Gastrointestinal Exam: soft, normal bowel sounds, No tenderness Rectal Exam: not done Back Exam: normal inspection, normal range of motion, No CVA tenderness, No vertebral tenderness Extremity Exam: deformities (Left clavicle), limited range of motion (Left and right shoulders), pain with movement (Left and right shoulders) Neurologic Exam: alert, oriented x 3, cooperative, electronics tech II-XII nml as tested, normal mood/affect, nml cerebellar function, nml station & gait, sensation nml Skin Exam: normal color, warm, dry SpO2 Interpretation: normal O2 Delivery: Room Air - Course Nursing assessment & vital signs reviewed: Yes Ordered Tests: Active Orders 24 hr Category Date Time Status Sling Application STAT Care 12/14/23 19:00 Active CLAVICLE Stat Exams 12/14/23 18:51 Taken SHOULDER Stat Exams 12/14/23 18:51 Taken Medication Summary Discontinued Medications Generic Name Dose Route Start Last Admin Trade Name Elodia PRN Reason Stop Dose Admin Orphenadrine Citrate 100 mg 12/14/23 19:00 12/14/23 19:19 Orphenadrine Citrate 100 Mg Er Tab PO 12/14/23 19:01 100 mg STAT ONE Administration Orphenadrine Citrate Confirm 12/14/23 19:18 Orphenadrine Citrate 100 Mg Er Tab Administered 12/14/23 19:19 Dose 100 mg PO .STK-MED ONE Oxycodone/Acetaminophen 1 tab 12/14/23 19:01 12/14/23 19:19 Oxycodone Hcl/Apap 5 Mg/325 Mg Tablet PO 12/14/23 19:02 1 tab STAT STA Administration Oxycodone/Acetaminophen Confirm 12/14/23 19:18 Oxycodone Hcl/Apap 5 Mg/325 Mg Tablet Administered 12/14/23 19:19 Dose 1 tab .ROUTE .STK-MED ONE - Progress Progress Note: 12/14/23 19:13 Patient's medical issue is 1 of low complexity. The level of complexity in the workup performed is based on review of the patient's past medical history, review of the patient's medication list, review the patient's drug allergy list, history present illness and physical findings on examination. The workup in this patient includes x-ray of the patient's left clavicle and right shoulder. 12/14/23 19:31 I interpreted the x-rays on this patient. The left clavicular x-ray performed today was compared to 3 prior chest x-rays. Today's clavicular x-ray shows no acute fracture but a chronic healed old fracture of the left clavicle. The right shoulder x-ray was interpreted by me and there is no evidence of acute fracture or dislocation. Counseled pt/family regarding: diagnosis, need for follow-up, rad results Medical Desision Making - Diagnostic Testing Diagnostic test were ordered, analyzed, and reviewed by me: Yes Radiological Interpretation: Interpreted by me - Risk of complications Minimal Risk: Minimal risk of morbidity - Departure Departure Disposition: Home Clinical Impression: Fall with no significant injury, Contusion of right shoulder, Pain of left clavicle Condition: Stable Critical Care Time: No Referrals: ROGELIO PELAEZ [Primary Care Provider] - Follow up/PCP as directed Additional Instructions: Ice pack to tender areas 3 times a day for the next 48 hours. Tylenol 650 mg orally every 4 hours as needed for pain control. Follow-up tomorrow morning, 12/15/2023, 8 AM at the [facility] orthopedic clinic for further evaluation management. Wear your left arm sling for comfort.
[2023-12-14 18:51] VITALS: RESP 18; TEMP 97.8
[2023-12-14] MEDS ORDERED: Norflex 100 MG Tablet PO ONE (19:18)
[2023-12-14] MEDS ORDERED: PERCOCET TABLET 5/325MG ONE (19:18)
[2023-12-14] MEDS: PERCOCET TABLET 5/325MG PO STA (19:19)
[2023-12-14] MEDS: Norflex 100 MG Tablet PO ONE (19:19)
[2023-12-14 19:49] VITALS: BP 133/95; PULSE 96; O2SAT 98
--- NOTE | 2023-12-15 08:43 | XRAY ---
Indication: Pain following fall. Comparison: None 3 view left shoulder demonstrates old mid clavicle fracture. No other bony, articular, or soft tissue abnormalities.
--- NOTE | 2023-12-15 08:43 | XRAY ---
Indication: Pain. Comparison: None 2 view left clavicle demonstrates old mid shaft fracture. No other bony, articular, or soft tissue abnormalities.
== END 2023-12-14 19:46 | disposition home or self-care (01) ==
LOC: ED 18:22
DX: S40.011A Contusion of right shoulder, initial encounter (principal); W18.30XA Fall on same level, unspecified, initial encounter; M25.512 Pain in left shoulder; E11.9 Type 2 diabetes mellitus without complications; Z79.4 Long term (current) use of insulin; Z28.310 Unvaccinated for COVID-19
CPT/HCPCS: 73000; 73030; 99283; A9270-GY